=== PATIENT | male | born 1965 | race Caucasian/White ===

== ENCOUNTER 2020-04-05 10:00 | Observation (INO) | payer BC, SELFPAY ==
[2020-04-05] VITALS (18 sets, daily range): BP systolic 128–188; BP diastolic 69–107; PULSE 68–79; RESP 9–20; TEMP 36.6–37.1; O2SAT 95–99; BMI 40.6
--- NOTE | 2020-04-05 | ECHO_ITS ---
Patient Info Name: Husam Clements Age: 55 years : 1965 Gender: Male Ht: 72 in Wt: 293 lbs BSA: 2.65 m2 HR: 68 bpm BP: 128 / 69 mmHg Heart Rhythm: Sinus Rhythm Technical Quality: Good Exam Date: 04/05/2020 4:14 PM Exam Location: [facility] Pulmonary Patient Status: Inpatient Admit Date: 04/05/2020 Staff Ordering Physician: Catalino Cartagena MD Exhibit Carpenter: Titus Brownlee RDCS Attending Provider: Catalino Cartagena MD Exam Type: CA echo doppler color flow Study Info Indications R07.9 - Chest pain, unspecified Complete two-dimensional, color flow and Doppler transthoracic echocardiogram is performed. History/Risk Factors Chest pain; HTN, DM2, SOB, edema, murmur. Summary 1. There is mildly increased left ventricular wall thickness. 2. Left ventricular systolic function is normal, estimated at 60-65%. 3. The aortic valve is trileaflet. 4. There is mild aortic valve sclerosis. 5. There is no aortic valve stenosis. 6. There is no mitral valve regurgitation. 7. There is no tricuspid valve regurgitation. 8. There is no pericardial effusion. Left Ventricle Left ventricular systolic function is normal, estimated at 60-65%. There is mildly increased left ventricular wall thickness. The left ventricular diastolic function is grade I diastolic dysfunction. Left ventricular chamber dimension is normal. Left ventricular septal wall motion is normal. Right Ventricle Right ventricular chamber dimension is normal. Right ventricular systolic function is normal. Left Atria Left atrial chamber dimension is normal. Right Atria Right atrial chamber dimension is normal. Aortic Valve The aortic valve is trileaflet. There is mild aortic valve sclerosis. There is no aortic valve stenosis. There is no aortic valve regurgitation. Pulmonic Valve The pulmonic valve is normal. There is no pulmonic valve stenosis. There is no pulmonic regurgitation. Mitral Valve The mitral valve has normal leaflets. There is no mitral valve stenosis. There is no mitral valve regurgitation. Tricuspid Valve The tricuspid valve leaflets are normal. There is no significant tricuspid valve stenosis. There is no tricuspid valve regurgitation. Unable to assess pulmonary artery systolic pressure due to poor TR envelope. Pericardium/Pleural The pericardium appears normal. There is no pericardial effusion. Inferior Vena Cava Inferior vena cava is normal in size. Aorta The aortic root size at the sinus of Valsalva is normal. The prox ascending aorta size is normal. Left Ventricular Outflow Tract Name Value Normal LVOT 2D LVOT Diameter 2.0 cm LVOT Doppler LVOT Peak Gradient 3 mmHg LVOT Mean Gradient 2 mmHg LVOT VTI 15 cm LVOT VTI/AV VTI Ratio 0.7 LVOT Stroke Volume 47 ml LVOT CO 3.4 l/min LVOT CI 1.3 l/min/m2 Mitral Valve
--- NOTE | ~2020-04-05 | NM_ITS ---
EXAMINATION: NM stress w perf spect multi DATE: 04/06/2020 09:40 INDICATION: Chest pain. TECHNIQUE: Rest images were obtained following intravenous administration of 11.5 mCi Tc99m tetrofosm in (Myoview). The patient performed an exercise activity. At peak exercise, 33 mCi Tc99m tetrofosmin (Myoview) was administered intravenously, and stress images were obtained. Data was reconstructed int o short axis and horizontal and vertical long axis SPECT images. Gated SPECT images were also obtaine d. COMPARISON: Chest CT 04/05/2020 FINDINGS: There is a small, mild, fixed perfusion defect involving mid inferior and mid inferolateral segments of left ventricle, consistent with infarct. No reversible component to suggest ischemia. Th ere is no segmental wall motion abnormality. Left ventricular ejection fraction measures >70%. IMPRESSION: 1. Small area of mild infarct involving mid inferior and mid inferolateral segments of left ventricle . 2. Normal left ventricular ejection fraction measuring >70%. Reviewed, dictated and finalized at location E. IMPRESSION: 1. Small area of mild infarct involving mid inferior and mid inferolateral segm ents of left ventricle. 2. Normal left ventricular ejection fraction measuring >70%.
--- NOTE | ~2020-04-05 | CT_ITS ---
EXAMINATION: CTA chest PE protocol DATE: 04/05/2020 12:24 CDT INDICATION: Midsternal chest pain TECHNIQUE: Computed tomographic angiography (CTA) of the chest was performed with 100 mL Omnipaque-35 0 intravenous contrast. The dose-length product was 895.51 mGy-cm. Maximum intensity projection 3D-re constructions of the aorta and other arteries were constructed by the technologist on a separate work station. Automated exposure control and iterative reconstruction technique were employed. COMPARISON: None. FINDINGS: Study is technically adequate without evidence for pulmonary embolism. Evaluation of the pe ripheral pulmonary arteries in the lower lobes is limited by motion artifact. No evidence for aortic aneurysm or dissection. No significant pleural or pericardial effusion. No focal airspace consolidati on. No pneumothorax. No pulmonary nodules or masses. 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 IMPRESSION: 1. No acute cardiopulmonary disease. No evidence for pulmonary embolism. Reviewed, dictated and finalized at location A.
--- NOTE | ~2020-04-05 | XR_ITS ---
EXAMINATION: XR chest 2V 04/05/2020 10:16 INDICATION: Chest pain and shortness of breath PROCEDURE: 2 view chest COMPARISON: Comparison to multiple prior studies sequentially, with oldest reviewed study dated 10/2012. FINDINGS: The lungs are clear. The cardiomediastinal silhouette is within normal limits. There are no pleural effusions. There is no pneumothorax suspected. IMPRESSION: 1: NO ACUTE CARDIOPULMONARY DISEASE. Reviewed, dictated and finalized at location A.
--- NOTE | ~2020-04-05 | US_ITS ---
US abdomen limited INDICATION: Abdomen pain PROCEDURE: Realtime right upper abdominal ultrasound. COMPARISON: No prior studies for comparison. FINDINGS: The pancreas is normal without focal mass or pancreatic ductal dilation. Liver echotexture is increased, consistent with fatty infiltration. There is normal directional flow in the portal ve in. The gallbladder is normal without stones, gallbladder wall thickening or pericholecystic fluid. Comm on bile duct measures 4 mm. No sonographic Robert's sign. IMPRESSION: 1: Fatty infiltration of the liver. Reviewed, dictated and finalized at location A.
--- NOTE | 2020-04-05 10:03 | ECG_ITS ---
Measurements Intervals [place] Rate: 78 P: 44 NM: 158 QRS: 2 QRSD: 121 T: 57 QT: 393 QTc: 450 Interpretive Statements SINUS RHYTHM INTRAVENTRICULAR CONDUCTION DELAY DELAYED PRECORDIAL R/S TRANSITION BORDERLINE ECG Electronically Signed On 04-05-2020 11:09:14 CDT by Vincenzo Adams D.O.
--- NOTE | 2020-04-05 10:12 | ED.CHESTPAIN ---
HPI - Chest Pain General Chief Complaint: Chest Pain Stated Complaint: cp Time Seen by Provider: 04/05/20 10:03 Source: RN notes reviewed History of Present Illness HPI narrative: Patient presents emergency department from home for chest pain. States symptoms began approximately 1 hour ago. Pain is located the midsternal chest and radiates down into the right lower chest described as a pressure in nature. States associated shortness of breath. Denies any fevers or chills abdominal pain nausea vomiting or any other symptoms. Patient denies any previous cardiac history. States that he makes the pain better or worse Related Data Home Medications Medication Instructions Recorded Confirmed aspirin 81 mg tablet,delayed 81 mg PO DAILY 09/18/19 release cholecalciferol (vitamin D3) 25 1,000 unit PO DAILY 09/18/19 mcg (1,000 unit) capsule fluticasone propionate 50 2 spray NASAL DAILY 09/18/19 mcg/actuation nasal spray,suspension omega-3 fatty acids 1,000 mg 1,000 mg PO DAILY 09/18/19 capsule Allergies Allergy/AdvReac Type Severity Reaction Status Date / Time hydrochlorothiazide Allergy Unknown Unknown Verified 04/05/20 10:16 losartan Allergy Unknown headaches Verified 04/05/20 10:16 Review of Systems Review of Systems: Narrative: Gen.: Denies fevers or chills ENT: Denies congestion Respiratory: Denies shortness of breath or cough CV: Reports chest pain GI: Denies abdominal pain nausea, emesis or diarrhea Musculoskeletal: Denies back pain or muscle pain Neuro: Denies numbness, tingling, weakness or focal weakness Skin: Denies rash Except as documented, all other systems reviewed and negative FORMERLY [facility] Past Medical History Medical History (Updated 04/05/20 @ 12:55 by Hernandez Marquez DO) Carpal tunnel syndrome on both sides Essential (primary) hypertension Type 2 diabetes mellitus without complication, without long-term current use of insulin Surgical History Surgical History (Updated 09/19/19 @ 08:29 by Ochoa Ray MD) Status post arthroscopy of left knee Status post carpal tunnel release Social History Social History Smoking status: Never smoker Second hand tobacco smoke exposure: No Alcohol intake: current Drinks per week: 2 Substance use: never Substance use type: does not use Gender identity (if verbalized by the patient): Male Exam Narrative: Exam Narrative: APPEARANCE: No acute distress, nontoxic, resting in bed EYES: EOMI HEENT: Normocephalic, atraumatic, OMM RESPIRATORY: No respiratory distress Clear to auscultation bilaterally with no rhonchi wheezing or rales. CARDIOVASCULAR: Regular rate and rhythm without murmurs rubs or gallops. ABDOMINAL: Obese, soft, nondistended, tender palpation epigastric right upper quadrant, no tenderness left upper quadrant, right lower quadrant left lower quadrant, no rebound or guarding MUSCULOSKELETAl: Moves all extremities. No clubbing, cyanosis or edema. NEURO: Awake and alert. Following commands, speech normal, no focal deficits SKIN:: Warm, dry. No rashes lesions or abrasions PSYCHIATRIC: Normal affect/mood, Course Course Emergency Course: Patient states chest pain is resolved at this time Discussed with Dr Cartagena presentation work-up. Agrees with admission to the chest pain center at this time Discussed with patient and family results of workup and diagnosis. Discussed need for admission. Patient and family understand and agree to current treatment plan discussed with patient his current blood sugar he states he does not have a history of diabetes but is been told he is prediabetic. We discussed that he would need to follow-up with his primary care physician as an outpatient Vital Signs Vital signs: Vital Signs Temperature 97.8 F 04/05/20 10:04 Pulse Rate 79 04/05/20 10:04 Respiratory Rate 18 04/05/20 10:04 Blood Pressure 188/107 H 04/05/20 10:04 Pu
[2020-04-05 10:20] LABS: Basophils Absolute Auto 0.1 K/mm3 (0.0-0.1); Basophils Percent Auto 0.8 % (0.2-1.2); Eosinophils Absolute Auto 0.1 K/mm3 (0-0.3); Eosinophils Percent Auto 1.2 % (0-4.4); Hemoglobin 16.8 g/dL (14.0-18.0); Immature Granulocyte Absolute 0.07 K/mm3 (0.00-0.031); Immature Granulocyte Percent A 0.7 % (0-0.5); Lymphocytes Percent Auto 33.1 % (18.3-44.2); Mean Corpuscular HGB Conc 35.7 g/dl (32-36); Mean Corpuscular Hemoglobin 30.3 pg (26-34); Mean Corpuscular Volume 84.7 fl (80-100); Mean Platelet Volume 11.3 fl (7.4-10.4); Monocytes Absolute Auto 0.8 K/mm3 (0.1-0.6); Monocytes Percent Auto 8.2 % (2.6-8.5); Neutrophils Absolute Auto 5.6 K/mm3 (1.3-6.7); Platelet Count Result 249 k/mm3 (150-375); Red Blood Count 5.55 M/mm3 (4.6-6.20); Red Cell Distribution Width 12.7 % (11.5-14.5)
[2020-04-05 10:34] LABS: Prothrombin Time 12.4 Seconds (11.1-14.7)
[2020-04-05 10:35] LABS: Partial Thromboplastin Time 25.8 SECONDS (22.3-36.8)
[2020-04-05] MEDS: KETOROLAC 30 MG/ML VIAL (*BKC) IV PUSH (10:35)
[2020-04-05 11:50] LABS: Alanine Aminotransferase 47 U/L (4-50); Albumin Level 4.3 g/dL (3.5-5.1); Alkaline Phosphatase 208 U/L (38-126); Aspartate Amino Transferase 46 U/L (17-59); Bilirubin,Total 0.7 mg/dL (0.2-1.3); Lipase 52 U/L (23-300)
[2020-04-05 11:53] LABS: Blood Urea Nitrogen 17 mg/dL (9-20); Calcium 8.8 mg/dL (8.4-10.2); Carbon Dioxide 21 mmol/L (22-30); Chloride 100 mmol/L (98-107); Estimated CRCL calculation 115 ml/min; Estimated Glomerular Filt Rate > 60; Glucose 302 mg/dL (75-110); Potassium 4.5 mmol/L (3.4-5.0); Sodium 131 mmol/L (137-145)
[2020-04-05 12:07] LABS: Troponin I < 0.012 ng/mL (0.000-0.034)
[2020-04-05] MEDS: SODIUM CHLORIDE 0.9% IV 1,000 ML 999 ML IV CONT (12:59)
[2020-04-05] MEDS: ASPIRIN 81 MG CHEWABLE TABLET 324 MG PO (13:29)
--- NOTE | 2020-04-05 14:00 | ADMGEN ---
This patient, Husam Clements, was admitted to [facility] OBS[address] PER DR. DAVILA FROM ER AT 1400. DENIES CP OR SOB ON ARRIVAL. Patient/family oriented to hospital policies and general routines including ID bracelet, bed and alarms, visiting hours, pain management, procedures, bathroom and other care routines, personal items, smoking policy, room service/diet, and visiting hours. Valuables list has been completed. Information on how to activate the Rapid Response Team has been discussed. Patient/Family are encouraged to report perceived risks to care and to ask questions if they do not understand what they are told or what they should do.
--- NOTE | 2020-04-05 14:00 | ADMGEN ---
This patient, Husam Clements, was admitted to [facility]. Patient/family oriented to hospital policies and general routines including ID bracelet, bed and alarms, visiting hours, pain management, procedures, bathroom and other care routines, personal items, smoking policy, room service/diet, and visiting hours. Valuables list has been completed. Information on how to activate the Rapid Response Team has been discussed. Patient/Family are encouraged to report perceived risks to care and to ask questions if they do not understand what they are told or what they should do.
--- NOTE | 2020-04-05 15:15 | PC.NURSE ---
DR. DAVILA HERE TO SEE PT AT BEDSIDE. NOTIFIED OF HOME MED LIST AND LAB RESULTS.
[2020-04-05 15:17] LABS: Cholesterol 183 mg/dL (0-200)
[2020-04-05 15:21] LABS: Troponin I < 0.012 ng/mL (0.000-0.034)
[2020-04-05 15:43] LABS: LDL Cholesterol Direct < 30 mg/dL; Triglycerides 1534 mg/dL (<150)
--- NOTE | 2020-04-05 15:45 | PM.CNCAR ---
Assessment and Plan Assessment and plan (1) Chest pain: Code(s): R07.9 - Chest pain, unspecified Status: Acute Assessment and Plan: He has atypical chest pain, but has significant risk factors for coronary disease, so far cardiac enzymes are negative and EKG is unremarkable. Will continue to follow cardiac enzymes, if they continue to be negative then will proceed with stress test in the morning (2) Type 2 diabetes mellitus without complication, without long-term current use of insulin: Code(s): E11.9 - Type 2 diabetes mellitus without complications Status: Acute Assessment and Plan: Treatment per hospitalist (3) Fatty (change of) liver, not elsewhere classified: Code(s): K76.0 - Fatty (change of) liver, not elsewhere classified Status: Acute (4) Metabolic syndrome: Code(s): E88.81 - Metabolic syndrome Status: Acute (5) Mixed hyperlipidemia: Code(s): E78.2 - Mixed hyperlipidemia Status: Acute Assessment and Plan: Will check lipid profile and treat accordingly (6) CIARA (obstructive sleep apnea): Code(s): G47.33 - Obstructive sleep apnea (adult) (pediatric) Status: Acute Assessment and Plan: Currently is on CPAP at home Additional Plan Thank you for allowing me to participate in this patient's care, I will be following up with you. Please do not hesitate to call me for any other inquiry History of Present Illness History of Present Illness Consult date/time: 04/05/20 15:45 55 years old gentleman with history of diabetes mellitus, history of dyslipidemia, history of sleep apnea came to the hospital because of chest pain started this morning. He had sudden onset heaviness in the chest mostly left-sided with no radiation lasted for 5 minutes was severe subsequently started improving slightly item erectile emergency room he was pain free and he feels Fountains no history of known coronary disease nausea previous microinfarction no history of previous episode like that. He has mild shortness of breath mild dyspnea exertion, has mild to moderate leg swelling any history of known sleep apnea. Apparently has diabetes mellitus, but he is on no medications for that he is trying to do diet controlled diabetes management. So far cardiac enzymes are negative and EKG is unremarkable Reason For Visit: chest pain Review of Systems Constitutional: Constitutional: Reports fatigue and Reports lethargy Cardiovascular: Cardiovascular: Reports as per HPI Respiratory: Respiratory: Reports dyspnea on exertion PMFSH Past Medical History Medical History Carpal tunnel syndrome on both sides Essential (primary) hypertension Type 2 diabetes mellitus without complication, without long-term current use of insulin Surgical History Surgical History Status post arthroscopy of left knee Status post carpal tunnel release Family History Family History Father Hypertension Family history of coronary artery disease Social History Social History Smoking status: Never smoker Second hand tobacco smoke exposure: No Alcohol intake: current Drinks per week: 2 Substance use: never Substance use type: does not use Gender identity (if verbalized by the patient): Male Meds Home Medications and Allergies Home Medications Medication Instructions Recorded Confirmed Type aspirin 81 mg tablet,delayed 81 mg PO DAILY 09/18/19 04/05/20 History release cholecalciferol (vitamin D3) 25 1,000 unit PO DAILY 09/18/19 04/05/20 History mcg (1,000 unit) capsule fluticasone propionate 50 2 spray NASAL DAILY PRN 09/18/19 04/05/20 History mcg/actuation nasal spray,suspension omega-3 fatty acids 1,000 mg 1,000 mg PO DAILY
--- NOTE | 2020-04-05 15:45 | PC.NURSE ---
DR. JON, HOSPITALIST, HERE TO SEE PT FOR MEDICAL MANAGEMENT PER DR. DAVILA'S REQUEST. CONDITION UPDATE GIVEN.
--- NOTE | 2020-04-05 15:50 | ECG_ITS ---
Measurements Intervals [place] Rate: 71 P: 35 NM: 181 QRS: 3 QRSD: 105 T: 48 QT: 397 QTc: 431 Interpretive Statements SINUS RHYTHM BASELINE ARTIFACT- I, II, III, AVR, AVL, AVF, V1 NORMAL ECG Electronically Signed On 04-05-2020 18:59:09 CDT by Vincenzo Adams D.O.
--- NOTE | 2020-04-05 16:10 | PC.NURSE ---
ECHO IN PROGRESS AT BEDSIDE.
--- NOTE | 2020-04-05 16:23 | PM.IMHP ---
H&P: HPI History of Present Illness Chief complaint: chest pain Narrative: Date of visit 04/05 1630. Husam Clements is a 55 year old male with hypertension, obstructive sleep apnea, hyperlipidemia and diabetes who states that while sitting at the computer this a.m. working developed substernal pressure associated with shortness of breath and diaphoresis that radiated slightly toward right side of his chest. The pain was intermittent and after 45 minutes he decided to come to the emergency room for evaluation. By the time he got to the emergency room his pain had subsided and EKG and troponin were negative and he was admitted for treatment of the same. He does relate that he has gained several lbs during the [facility] in working at home and has been more sedentary. He also related that he occasionally kayaks and has noticed that his energy level has been down and sometimes his arms feel heavy but no chest pain. Risk factors for coronary disease include hypertension, hyperlipidemia, diabetes, and positive family history. Never been a smoker Review of Systems Review of Systems: Narrative: Constitutional he states that he has gained weight but not sure how much although the last 2-3 months. No fever no chills Eye no double vision scotoma Mouth no pharyngitis laryngitis Pulmonary no ongoing shortness breath wheezing or cough CV as per present illness no palpitation no real pedal edema GI no melena hematochezia diarrhea or constipation. Colonoscope 2017 with adenomatous polyp no dysuria no hematuria Muscle skeletal no particular joint discomfort Integument no skin breakdown rashes Neuropsych no seizures no syncope PMFSH Past Medical History Medical History (Updated 04/05/20 @ 16:44 by Niraj Calles MD) Carpal tunnel syndrome on both sides Essential (primary) hypertension Fractured tibia Mixed hyperlipidemia CIARA (obstructive sleep apnea) Type 2 diabetes mellitus without complication, without long-term current use of insulin Surgical History Surgical History (Updated 04/05/20 @ 16:44 by Niraj Calles MD) History of tonsillectomy Status post arthroscopy of left knee Status post carpal tunnel release Family History Family History (Updated 04/05/20 @ 16:46 by Niraj Calles MD) Father , age 72 , first CAD age 52 Hypertension Family history of coronary artery disease Diabetes mellitus Mother No problems noted. Social History Social History (Updated 04/05/20 @ 16:47 by Nirja Calles MD) Social History: Works for [employer] for the past 25 years Smoking status: Never smoker Second hand tobacco smoke exposure: No Alcohol intake: current Drinks per week: 2 Substance use: never Substance use type: does not use Gender identity (if verbalized by the patient): Male Meds Home Medications and Allergies Home Medications Medication Instructions Recorded Confirmed Type aspirin 81 mg tablet,delayed 81 mg PO DAILY 09/18/19 04/05/20 History release cholecalciferol (vitamin D3) 25 1,000 unit PO DAILY 09/18/19 04/05/20 History mcg (1,000 unit) capsule fluticasone propionate 50 2 spray NASAL DAILY PRN 09/18/19 04/05/20 History mcg/actuation nasal spray,suspension omega-3 fatty acids 1,000 mg 1,000 mg PO DAILY 09/18/19 04/05/20 History capsule aliskiren 300 mg tablet 300 mg PO DAILY #90 tablet 10/30/19 04/05/20 Rx diltiazem HCl 180 mg 360 mg PO DAILY #180 cap 01/16/20 04/05/20 Rx capsule,extended release 24 hr nebivolol 10 mg tablet 10 mg PO DAILY #90 tablet 01/16/20 04/05/20 Rx rosuvastatin 10 mg tablet 10 mg PO DAILY #90 tablet 03/10/20 04/05/20 Rx diphenhydramine HCl [Benadryl 25 mg PO TID PRN 04/05/20 04/05/20 History Allergy] Allergies Allergy/AdvReac Type Severity Reaction Status Date / Time hydrochlorothiazide Allergy Unknown Anaphylaxis Verified 04/05/20 15:46 losartan Allergy Unknown Anaphylaxis Verified 04/05/20 15:46
[2020-04-05] MEDS: INSULIN ASPART (*BKC) 100 UNITS/ML SUB-Q (18:21)
[2020-04-05 18:33] LABS: Troponin I < 0.012 ng/mL (0.000-0.034)
--- NOTE | 2020-04-05 18:50 | ECG_ITS ---
Measurements Intervals [place] Rate: 64 P: 28 NM: 178 QRS: -1 QRSD: 104 T: 36 QT: 427 QTc: 441 Interpretive Statements SINUS RHYTHM NORMAL ECG Electronically Signed On 04-05-2020 15:01:23 CDT by Vincenzo Adams D.O.
[2020-04-05] MEDS: ENOXAPARIN 40 MG/0.4 ML SYRINGE SUB-Q (20:39)
[2020-04-05] MEDS: FENOFIBRATE NANOCRYSTALLIZED 145 MG TABLET PO (20:39)
[2020-04-06] VITALS: PULSE 77
--- NOTE | 2020-04-06 | EST_ITS ---
Patient Info Name: Husam Clements Age: 55 years : 1965 Gender: Male Ht: 72 in Wt: 293 lbs BSA: 2.65 m2 Exam Date: 04/06/2020 8:33 AM Exam Location: [facility] Stress Patient Status: Inpatient Admit Date: 04/05/2020 Staff Ordering Physician: Catalino Cartagena MD Attending Provider: Catalino Cartagena MD Exercise Technologist: Roxanne Null RDCS Exam Type: CA stress test treadmill w NM Study Info Indications R07.9 - Chest pain, unspecified A pharmacological stress test was performed. Summary 1. Patient exercise on bimal protocol for 7 minutes achieving 10 METs. No chest pain. Patient stopped due to dyspnea. Heart rate was 81 at rest and increased to 146 at peak exercise which is 89% of max predicted heart rate. BP was 156/90 at rest and increased to 208/64 EKG shows normal sinus rhythm at rest. No ischemic EKG changes noted at peak exercise or recovery. 2. Summary: Stress EKG negative for ischemia. Hypertensive response to exercise. Nuclear images interpretation will be reported separately. Protocol: Manual Mode Stress ECG Details Stage: REST Duration (min): 0 min : 50 sec Boyle: --- Speed (mph): 0.0 Grade (%): 0 HR (bpm): 84 SBP (mmHg): 156 DBP (mmHg): 90 METS: --- Stage: REST Duration (min): 13 min : 18 sec Boyle: --- Speed (mph): 0.0 Grade (%): 0 HR (bpm): 99 SBP (mmHg): 156 DBP (mmHg): 90 METS: --- Stage: STAGE 1 Duration (min): 1 min : 0 sec Boyle: --- Speed (mph): 1.7 Grade (%): 10 HR (bpm): 102 SBP (mmHg): 156 DBP (mmHg): 90 METS: --- Stage: STAGE 1 Duration (min): 2 min : 0 sec Boyle: --- Speed (mph): 1.7 Grade (%): 10 HR (bpm): 108 SBP (mmHg): 156 DBP (mmHg): 90 METS: --- Stage: STAGE 1 Duration (min): 3 min : 0 sec Boyle: --- Speed (mph): 1.7 Grade (%): 10 HR (bpm): 113 SBP (mmHg): 201 DBP (mmHg): 80 METS: --- Stage: STAGE 2 Duration (min): 1 min : 0 sec Boyle: --- Speed (mph): 2.5 Grade (%): 12 HR (bpm): 118 SBP (mmHg): 201 DBP (mmHg): 80 METS: --- Stage: STAGE 2 Duration (min): 2 min : 0 sec Boyle: --- Speed (mph): 2.5 Grade (%): 12 HR (bpm): 124 SBP (mmHg): 208 DBP (mmHg): 64 METS: --- Stage: STAGE 2 Duration (min): 3 min : 0 sec Boyle: --- Speed (mph): 2.5 Grade (%): 12 HR (bpm): 129 SBP (mmHg): 208 DBP (mmHg): 64 METS: --- Stage: STAGE 3 Duration (min): 1 min : 0 sec Boyle: --- Speed (mph): 3.4 Grade (%): 14 HR (bpm): 141 SBP (mmHg): 187 DBP (mmHg): 100 METS: --- Stage: STAGE 3 Duration (min): 2 min : 0 sec Boyle: --- Speed (mph): 2.5 Grade (%): 0 HR (bpm): 146 SBP (mmHg): 187 DBP (mmHg): 100 METS: --- Stage: STAGE 3 Duration (min): 2 min : 2 sec Boyle: --- Speed (mph): 2.5 Grade (%): 0 HR (bpm): 146 SBP (mmHg): 187 DBP (mmHg): 100 METS: ---
[2020-04-06 03:52] VITALS: BP 146/95; PULSE 83; RESP 18; O2SAT 98
[2020-04-06 04:00] VITALS: PULSE 84
--- NOTE | 2020-04-06 08:05 | PM.CNCAR ---
History of Present Illness History of Present Illness Consult date/time: 04/06/20 08:05 55 y/o male with h/o HTN, HLD, diet controlled DM who presented with chest pain. Pain developed suddenly while patient was working on his computer. If felt like pressure in the middle of the chest with no radiation. It was associated with SOB and diaphoresis. No nausea/vomiting. He has been feeling fatigued lately. He put on at least 15 pounds over the last 2 months that he contributes to staying at home due to the pandemic. He felt better by the time he got to ER and he remains pain free since. He has no personal history of heart disease but very strong family history of heart disease including father and grandfather who both had MIs in their early 50s. His brother had valve replacement Trop has been negative X3. EKG showed: Never smoker. Reason For Visit: chest pain PMFSH Past Medical History Medical History (Updated 04/05/20 @ 16:44 by Niraj Calles MD) Carpal tunnel syndrome on both sides Essential (primary) hypertension Fractured tibia Mixed hyperlipidemia CIARA (obstructive sleep apnea) Type 2 diabetes mellitus without complication, without long-term current use of insulin Surgical History Surgical History (Updated 04/05/20 @ 16:44 by Niraj Calles MD) History of tonsillectomy Status post arthroscopy of left knee Status post carpal tunnel release Family History Family History (Updated 04/05/20 @ 16:46 by Niraj Calles MD) Father , age 72 , first CAD age 52 Hypertension Family history of coronary artery disease Diabetes mellitus Mother No problems noted. Social History Social History (Updated 04/05/20 @ 16:47 by Niraj Calles MD) Social History: Works for [employer] for the past 25 years Smoking status: Never smoker Second hand tobacco smoke exposure: No Alcohol intake: current Drinks per week: 2 Substance use: never Substance use type: does not use Gender identity (if verbalized by the patient): Male Meds Home Medications and Allergies Home Medications Medication Instructions Recorded Confirmed Type aspirin 81 mg tablet,delayed 81 mg PO DAILY 09/18/19 04/05/20 History release cholecalciferol (vitamin D3) 25 1,000 unit PO DAILY 09/18/19 04/05/20 History mcg (1,000 unit) capsule fluticasone propionate 50 2 spray NASAL DAILY PRN 09/18/19 04/05/20 History mcg/actuation nasal spray,suspension omega-3 fatty acids 1,000 mg 1,000 mg PO DAILY 09/18/19 04/05/20 History capsule aliskiren 300 mg tablet 300 mg PO DAILY #90 tablet 10/30/19 04/05/20 Rx diltiazem HCl 180 mg 360 mg PO DAILY #180 cap 01/16/20 04/05/20 Rx capsule,extended release 24 hr nebivolol 10 mg tablet 10 mg PO DAILY #90 tablet 01/16/20 04/05/20 Rx rosuvastatin 10 mg tablet 10 mg PO DAILY #90 tablet 03/10/20 04/05/20 Rx diphenhydramine HCl [Benadryl 25 mg PO TID PRN 04/05/20 04/05/20 History Allergy] Allergies Allergy/AdvReac Type Severity Reaction Status Date / Time hydrochlorothiazide Allergy Unknown Anaphylaxis Verified 04/05/20 15:46 losartan Allergy Unknown Anaphylaxis Verified 04/05/20 15:46 amlodipine [From Lotrel] Allergy Headache Verified 04/05/20 15:32 benazepril [From Lotrel] Allergy Headache Verified 04/05/20 15:32 Vital Signs Vital Signs - 24 hr 04/05/20 10:04 04/05/20 11:00 04/05/20 11:33 Temperature 36.6 C Pulse Rate 79 71 73 Respiratory Rate 18 9 L 19 Blood Pressure 188/107 H 154/81 H Pulse Oximetry 98 98 97 04/05/20 11:46 04/05/20 12:01 04/05/20 12:21 Temperature Pulse Rate 78 71 72 Respiratory Rate 19 13 16 Blood Pressure 146/84 H 157/82 H 156/79 H Pulse Oximetry 97 98 98 04/05/20 12:31 04/05/20 12:46 04/05/20 13:01 Temperature Pulse Rate 71 73 69 Respiratory Rate 13 12 19 Blood Pressure 148/80 H 155/88 H 135/73 Pulse Oximetry 98 98 98 04/05/20 13:15 04/05/20 13:16
--- NOTE | 2020-04-06 08:13 | PM.PNCARD ---
Progress Note: A&P Assessment and Plan (1) Chest pain: Code(s): R07.9 - Chest pain, unspecified Status: Acute Assessment and Plan: He has atypical chest pain, but has significant risk factors for coronary disease, so far cardiac enzymes are negative and EKG is unremarkable. Will proceed with exercise Nuc stress test (2) Type 2 diabetes mellitus without complication, without long-term current use of insulin: Code(s): E11.9 - Type 2 diabetes mellitus without complications Status: Acute Assessment and Plan: Treatment per hospitalist (3) Fatty (change of) liver, not elsewhere classified: Code(s): K76.0 - Fatty (change of) liver, not elsewhere classified Status: Acute (4) Metabolic syndrome: Code(s): E88.81 - Metabolic syndrome Status: Acute (5) Mixed hyperlipidemia: Code(s): E78.2 - Mixed hyperlipidemia Status: Acute Assessment and Plan: He has severe Severe hypertriglyceridemia 1500 Need lifestyle modifications and dietary restrictions. Would also start fenofibrate (6) CIARA (obstructive sleep apnea): Code(s): G47.33 - Obstructive sleep apnea (adult) (pediatric) Status: Acute Assessment and Plan: Currently is on CPAP at home Subjective Date/time seen: 04/06/20 08:13 Feels better with no recurrence of chest pain since yesterday Review of Systems Constitutional: Constitutional: Reports fatigue and Reports lethargy Cardiovascular: Cardiovascular: Reports as per HPI and Reports dyspnea on exertion Respiratory: Respiratory: Reports dyspnea on exertion Endocrine: Endocrine: Reports fatigue Exam Const: General: no acute distress Eyes: Sclera: sclerae normal Neck: Neck: no JVD Carotids: no bruits Resp: Effort & Inspection: normal respiratory effort Auscultation: clear to auscultation bilaterally Cardio: Rate: regular rate and not tachycardic Rhythm: regular rhythm Heart sounds: no gallops, no murmurs and no rubs GI: GI Palp: Yes Soft to palpation and No Tenderness to palpation present (GI) Skin: General skin exam: normal color Neuro: Cranial nerves: Yes Normal hearing present Speech: normal speech Extrem: General: normal to inspection and no edema Psych: Affect: normal affect Objective Data Vital Signs Vital Signs: Vital Signs - 24 hr 04/05/20 10:04 04/05/20 11:00 04/05/20 11:33 Temperature 36.6 C Pulse Rate 79 71 73 Respiratory Rate 18 9 L 19 Blood Pressure 188/107 H 154/81 H Pulse Oximetry 98 98 97 04/05/20 11:46 04/05/20 12:01 04/05/20 12:21 Temperature Pulse Rate 78 71 72 Respiratory Rate 19 13 16 Blood Pressure 146/84 H 157/82 H 156/79 H Pulse Oximetry 97 98 98 04/05/20 12:31 04/05/20 12:46 04/05/20 13:01 Temperature Pulse Rate 71 73 69 Respiratory Rate 13 12 19 Blood Pressure 148/80 H 155/88 H 135/73 Pulse Oximetry 98 98 98 04/05/20 13:15 04/05/20 13:16 04/05/20 14:00 Temperature 37.1 C Pulse Rate 68 68 76 Respiratory Rate 15 14 Blood Pressure 128/69 148/89 H Pulse Oximetry 98 99 04/05/20 14:15 04/05/20 16:00 04/05/20 18:00 Temperature 36.9 C Pulse Rate 70 78 76 Respiratory Rate 16 Blood Pressure 159/92 H Pulse Oximetry 98 04/05/20 20:00 04/05/20 20:47 04/05/20 23:54 Temperature 37.0 C 36.9 C Pulse Rate 78 78 Respiratory Rate 20 19 Blood Pressure 157/81 H 176/90 H Pulse Oximetry 95 97 98 04/06/20 00:00 04/06/20 03:52 04/06/20 04:00 Temperature Pulse Rate 77 83 84 Respiratory Rate 18 Blood Pressure 146/95 H Pulse Oximetry 98 Intake/Output Intake/Output: Intake & Output 04/03/20 04/04/20 04/05/20 04/06/20 23:59 23:59 23:59 23:59 Intake Total 240 240 Balance 240 240 Meds/Results Medications: Active Medications Generic Name Dose Route Start Last Admin Trade Name Freq PRN Reason Stop Dose Admin Acetaminophen 650 mg 04/05/20 16:42 Tylenol Tablet PO Q6H PRN Mild
[2020-04-06 09:58] VITALS: BP 160/103; PULSE 95; RESP 21; O2SAT 98
[2020-04-06 10:20] VITALS: PULSE 95
[2020-04-06] MEDS: NEBIVOLOL HCL 5 MG TABLET 10 MG PO (10:20)
[2020-04-06] MEDS: OMEGA 3 POLYUNSAT FATTY ACIDS 1 GM CAP PO (10:20)
[2020-04-06] MEDS: ROSUVASTATIN 10 MG TABLET PO (10:20)
[2020-04-06] MEDS: ALISKIREN 150 MG TABLET 300 MG PO (10:20)
[2020-04-06] MEDS: FENOFIBRATE NANOCRYSTALLIZED 145 MG TABLET PO (10:21)
[2020-04-06] MEDS: CHOLECALCIFEROL 1,000 UNIT TABLET 1000 UNITS PO (10:22)
--- NOTE | 2020-04-06 11:49 | PM.IMPN ---
Progress Note: A&P Assessment and Plan (1) Chest pain: Qualifiers: Chest pain type: unspecified Qualified Code(s): R07.9 - Chest pain, unspecified Code(s): R07.9 - Chest pain, unspecified Status: Acute Assessment and Plan: His pain has resolved , he had a stress test that showed a small fixed perfusion defect over the infrolateral segment of the left ventricle . The exercise portion of the test came back normal. Seen by cardiology, no further intervention at this time. (2) Type 2 diabetes mellitus without complication, without long-term current use of insulin: Code(s): E11.9 - Type 2 diabetes mellitus without complications Status: Chronic Assessment and Plan: Hb A1c is pending , he states that he controls his DM with diet and exercise. He was advised to follow up with his PCP on the results of the A1c. No need to hold the discharge. (3) Mixed hyperlipidemia: Code(s): E78.2 - Mixed hyperlipidemia Status: Chronic Assessment and Plan: Triglycerides elevated, he was counseled about diet and alcohol restrictions. Fenofibrate was added by cardiology. (4) Essential (primary) hypertension: Code(s): I10 - Essential (primary) hypertension Status: Chronic Assessment and Plan: Cont home meds. (5) Metabolic syndrome: Code(s): E88.81 - Metabolic syndrome Status: Chronic Additional Plan Ok to go home per medicine, needs close follow up on his DM since we don't have the results of his A1c. Time Spent With Patient Time with patient: 15 - 25 minutes Subjective Date/time seen: 04/06/20 11:49 No new complains , his chest pain has resolved. Review of Systems Review of Systems: Narrative: No new complains, denies chest pain or SOB. Exam Const: General: no acute distress Eyes: General: appearance normal, both eyes and all related structures Neck: Neck: supple and no JVD Resp: Effort & Inspection: normal respiratory effort Auscultation: clear to auscultation bilaterally Cardio: Rate: regular rate Rhythm: regular rhythm Other: No bradycardia or tachycardia GI: Inspection: normal to inspection Auscultation: normal bowel sounds Skin: General skin exam: normal color and no rashes or lesions noted Neuro: Cognition (Neuro): normal cognition Speech: normal speech Motor exam (neuro): 5/5 motor strength present throughout Extrem: General: normal to inspection Psych: Mental Status: mental status grossly normal Affect: normal affect Objective Data Vital Signs Vital Signs: Vital Signs - 24 hr 04/05/20 12:01 04/05/20 12:21 04/05/20 12:31 Temperature Pulse Rate 71 72 71 Respiratory Rate 13 16 13 Blood Pressure 157/82 H 156/79 H 148/80 H Pulse Oximetry 98 98 98 04/05/20 12:46 04/05/20 13:01 04/05/20 13:15 Temperature Pulse Rate 73 69 68 Respiratory Rate 12 19 Blood Pressure 155/88 H 135/73 Pulse Oximetry 98 98 04/05/20 13:16 04/05/20 14:00 04/05/20 14:15 Temperature 98.8 F Pulse Rate 68 76 70 Respiratory Rate 15 14 Blood Pressure 128/69 148/89 H Pulse Oximetry 98 99 04/05/20 16:00 04/05/20 18:00 04/05/20 20:00 Temperature 98.5 F 98.6 F Pulse Rate 78 76 78 Respiratory Rate 16 20 Blood Pressure 159/92 H 157/81 H Pulse Oximetry 98 95 04/05/20 20:47 04/05/20 23:54 04/06/20 00:00 Temperature 98.4 F Pulse Rate 78 77 Respiratory Rate 19 Blood Pressure 176/90 H Pulse Oximetry 97 98 04/06/20 03:52 04/06/20 04:00 04/06/20 09:58 Temperature Pulse Rate 83 84 95 Respiratory Rate 18 21 H Blood Pressure 146/95 H 160/103 H Pulse Oximetry 98 98 04/06/20 10:20 Temperature Pulse Rate 95 Respiratory Rate Blood Pressure Pulse Oximetry Intake/Output Intake/Output: Intake & Output 04/03/20 04/04/20 04/05/20 04/06/20 23:59 23:59 23:59 23:59 Intake Total 240 240 Balance 240 240 Meds/Results Medications: Ac
--- NOTE | 2020-04-06 19:19 | PM.DS ---
DS: Admitting Diagnosis Admitting Diagnosis Admitting Diagnosis: Chest pain, unspecified DS: Discharge Diagnosis Discharge Diagnosis (1) Chest pain: Qualifiers: Chest pain type: unspecified Qualified Code(s): R07.9 - Chest pain, unspecified Code(s): R07.9 - Chest pain, unspecified Status: Acute Assessment and Plan: He has atypical chest pain, but has significant risk factors for coronary disease, so far cardiac enzymes are negative and EKG is unremarkable. Will proceed with exercise Nuc stress test (2) Type 2 diabetes mellitus without complication, without long-term current use of insulin: Code(s): E11.9 - Type 2 diabetes mellitus without complications Status: Chronic Assessment and Plan: Treatment per hospitalist (3) Fatty (change of) liver, not elsewhere classified: Code(s): K76.0 - Fatty (change of) liver, not elsewhere classified Status: Acute (4) Metabolic syndrome: Code(s): E88.81 - Metabolic syndrome Status: Chronic (5) Mixed hyperlipidemia: Code(s): E78.2 - Mixed hyperlipidemia Status: Chronic Assessment and Plan: He has severe Severe hypertriglyceridemia 1500 Need lifestyle modifications and dietary restrictions. Would also start fenofibrate (6) CIARA (obstructive sleep apnea): Code(s): G47.33 - Obstructive sleep apnea (adult) (pediatric) Status: Acute Assessment and Plan: Currently is on CPAP at home DS: Summary Time Spent with Patient Time attestation: Total time spent providing and/or coordinating discharge services: Exam Const: General: no acute distress Eyes: Sclera: sclerae normal Neck: Neck: no JVD Carotids: no bruits Resp: Effort & Inspection: normal respiratory effort Auscultation: clear to auscultation bilaterally Cardio: Rate: regular rate and not tachycardic Rhythm: regular rhythm Heart sounds: no gallops, no murmurs and no rubs Skin: General skin exam: normal color Neuro: Cranial nerves: Yes Normal hearing present Speech: normal speech Extrem: General: normal to inspection and no edema Psych: Affect: normal affect Discharge Plan Discharge Attending physician on discharge: Isabella Fox Consulting providers: Niraj Calles ; Everett Arguello Discharging Clinician: Isabella Fox Patient Disposition: Home, Self-Care Activity: as tolerated Diet: diabetic Discharge Instructions: Follow Up with Primary Doctor to follow blood glucose/ Hemoglobin A1C per Dr. Ward Stand Alone Forms: General Discharge Information Follow-up/Referrals: Ochoa Ray MD [Primary Care Provider] - Discharge Medications: New fenofibrate nanocrystallized 145 mg Tablet 145 mg PO QAM Qty: 30 RF: 0 Continued fluticasone propionate 50 mcg/actuation spray,suspension 2 spray NASAL DAILY PRN (Reason: Allergy Symptoms) RF: 0 aspirin 81 mg tablet,delayed release (DR/EC) 81 mg PO DAILY RF: 0 omega-3 fatty acids [Fish Oil Concentrate] 1,000 mg capsule 1,000 mg PO DAILY RF: 0 cholecalciferol (vitamin D3) 1,000 unit capsule 1,000 unit PO DAILY RF: 0 diphenhydramine HCl [Benadryl Allergy] 25 mg Tablet 25 mg PO TID PRN (Reason: Allergy Symptoms) RF: 0 aliskiren [Tekturna] 300 mg tablet 300 mg PO DAILY Qty: 90 RF: 2 diltiazem HCl 180 mg capsule,extended release 24hr 360 mg PO DAILY Qty: 180 RF: 1 Bystolic 10 mg tablet 10 mg PO DAILY Qty: 90 RF: 1 rosuvastatin [Crestor] 10 mg tablet 10 mg PO DAILY Qty: 90 RF: 1 Date of admission: 04/05/20 12:50 Primary Care Provider: Ochoa Ray Admitting Provider: Catalino Cartagena Discharge Date/Time: 04/06/20 13:10 Attending physician on admission: Catalino Cartagena Condition: Stable
[2020-04-13 11:11] LABS: Glucose Point of Care 234 (65-105)
[2020-04-13 11:13] LABS: Glucose Point of Care 210 (65-105)
[2020-04-13 11:15] LABS: Glucose Point of Care 227 (65-105)
== END 2020-04-06 13:10 | disposition home or self-care (01) ==
LOC: ANHED 12:56 → ANHCPC 15:52
PROVIDERS: Admitting Provider Specialist; Emergency Provider Emergency Medicine; PCP Family Medicine; Visit Provider Internal Medicine
DX: R07.89 Other chest pain (principal); I10 Essential (primary) hypertension; E11.9 Type 2 diabetes mellitus without complications; K76.0 Fatty (change of) liver, not elsewhere classified; E88.81 Metabolic syndrome and other insulin resistance; E78.2 Mixed hyperlipidemia; G47.33 Obstructive sleep apnea (adult) (pediatric)
CPT/HCPCS: 36415; 71046; 71275; 76705; 78452; 80048; 80061; 80076; 83690; 84484; 85025; 85610; 85730; 93005; 93017; 93306; 96372; 96374; 99285; A9270; A9502; G0378; J1650; J1815; J1885; J7030; Q9967

== ENCOUNTER 2020-04-14 00:14 | Outpatient (CLI) | payer BC, SELFPAY ==
[2020-04-14 18:11] LABS: SARS-CoV-2 RNA PCR Negative
== END 2020-04-14 00:15 | disposition home or self-care (01) ==
LOC: ANHCOVIDDT 00:14
PROVIDERS: PCP Family Medicine; Visit Provider Internal Medicine Gastroenterology
DX: Z20.828 Contact with and (suspected) exposure to other viral communicable diseases (principal); Z01.812 Encounter for preprocedural laboratory examination
CPT/HCPCS: 87635; C9803; U0003

== ENCOUNTER 2020-04-16 03:31 | Day surgery (SDC) | payer BC, SELFPAY ==
[2020-04-13 14:57] VITALS: BMI 40.4
[2020-04-16 06:39] VITALS: BP 137/72; PULSE 74; RESP 18; TEMP 36.8; O2SAT 98; BMI 39.1
[2020-04-16] MEDS: LACTATED RINGERS 1,000 ML 150 ML IV CONT (06:48)
--- NOTE | 2020-04-16 07:02 | WPDANESEPPF ---
Anes - Initial Pre Proc Eval Procedure: Operation Date: 04/16/20 08:00 Proposed Procedures p Screening Colonoscopy - Andrew Grimm MD Date/Time: 04/16/20 07:02 Surgeon: Andrew Grimm MD Pre Op Diagnosis: neoplasm screening, family hx of polyps Patient Data Age: 55 Gender: M Height: 1.83 m Weight: 130.8 kg Last Vital Signs Temp 36.8 C 04/16/20 06:39 Pulse 74 04/16/20 06:39 Resp 18 04/16/20 06:39 BP 137/72 04/16/20 06:39 Pulse Ox 98 04/16/20 06:39 Allergies Allergy/AdvReac Type Severity Reaction Status Date / Time hydrochlorothiazide Allergy Severe Anaphylaxis Verified 04/16/20 06:37 losartan Allergy Severe Anaphylaxis Verified 04/16/20 06:37 amlodipine [From Lotrel] Allergy Headache Verified 04/16/20 06:37 benazepril [From Lotrel] Allergy Headache Verified 04/16/20 06:37 Home Medications Medication Instructions Recorded Confirmed Type aspirin 81 mg tablet,delayed 81 mg PO DAILY 09/18/19 04/13/20 History release cholecalciferol (vitamin D3) 25 1,000 unit PO DAILY 09/18/19 04/13/20 History mcg (1,000 unit) capsule fluticasone propionate 50 2 spray NASAL DAILY PRN 09/18/19 04/13/20 History mcg/actuation nasal spray,suspension omega-3 fatty acids 1,000 mg 1,000 mg PO DAILY 09/18/19 04/13/20 History capsule aliskiren 300 mg tablet 300 mg PO DAILY #90 tablet 10/30/19 04/13/20 Rx diltiazem HCl 180 mg 360 mg PO DAILY #180 cap 01/16/20 04/13/20 Rx capsule,extended release 24 hr nebivolol 10 mg tablet 10 mg PO DAILY #90 tablet 01/16/20 04/13/20 Rx diphenhydramine HCl [Benadryl 25 mg PO TID PRN 04/05/20 04/13/20 History Allergy] fenofibrate nanocrystallized 145 mg PO QAM #30 tablet 04/06/20 04/13/20 Rx rosuvastatin 10 mg PO DAILY 06/16/20 06/16/20 History Patient hx anesthesia problems: none Family hx anesthesia problems: none PMFSH Past Medical History Medical History (Updated 04/06/20 @ 12:01 by Everett Felix MD) Carpal tunnel syndrome on both sides Essential (primary) hypertension Fractured tibia Mixed hyperlipidemia CIARA (obstructive sleep apnea) Type 2 diabetes mellitus without complication, without long-term current use of insulin Surgical History Surgical History (Updated 04/05/20 @ 16:44 by Niraj Calles MD) History of tonsillectomy Status post arthroscopy of left knee Status post carpal tunnel release Family History Family History (Updated 04/05/20 @ 16:46 by Niraj Calles MD) Father , age 72 , first CAD age 52 Hypertension Family history of coronary artery disease Diabetes mellitus Mother No problems noted. Social History Social History (Updated 04/05/20 @ 16:47 by Niraj Calles MD) Social History: Works for [employer] for the past 25 years Smoking status: Never smoker Second hand tobacco smoke exposure: No Alcohol intake: current Drinks per week: 2 Substance use: never Substance use type: does not use Gender identity (if verbalized by the patient): Male Anes - Eval Final PreProcedure Day of Procedure 04/16/20 07:02 Patient weight: obese Heart: regular rate and rhythm Lungs: clear to auscultation and normal air movement Airway: Mallampati scale class III Neurological: alert and oriented Last oral intake: >/= 8 hours ASA classification: III Emergent: no Anesthetic plan: proceed Anesthesia type and monitoring: general GIVS and standard monitoring Informed Consent: The patient's anesthetic plan and its attendant risks and benefits were discussed with the patient/family/POA. Questions were solicited and answers provided to the satisfaction of the patient/family/POA.
--- NOTE | 2020-04-16 07:56 | PM.HPGS ---
History of Present Illness History of Present Illness Consent: Risks, benefits, and alternatives have been discussed and questions answered. Patient agrees to proceed with procedure. Chief complaint: neoplasm screening, family hx of polyps Narrative: Husam Clements is a 55 year old male For screening colonoscopy. He has a history of an incompletely removed PMFSH Past Medical History Medical History Carpal tunnel syndrome on both sides Essential (primary) hypertension Fractured tibia Mixed hyperlipidemia CIARA (obstructive sleep apnea) Type 2 diabetes mellitus without complication, without long-term current use of insulin Surgical History Surgical History History of tonsillectomy Status post arthroscopy of left knee Status post carpal tunnel release Family History Family History Father , age 72 , first CAD age 52 Hypertension Family history of coronary artery disease Diabetes mellitus Mother No problems noted. Social History Social History Social History: Works for [employer] for the past 25 years Smoking status: Never smoker Second hand tobacco smoke exposure: No Alcohol intake: current Drinks per week: 2 Substance use: never Substance use type: does not use Gender identity (if verbalized by the patient): Male Meds Home Medications and Allergies Home Medications Medication Instructions Recorded Confirmed Type aspirin 81 mg tablet,delayed 81 mg PO DAILY 09/18/19 04/13/20 History release cholecalciferol (vitamin D3) 25 1,000 unit PO DAILY 09/18/19 04/13/20 History mcg (1,000 unit) capsule fluticasone propionate 50 2 spray NASAL DAILY PRN 09/18/19 04/13/20 History mcg/actuation nasal spray,suspension omega-3 fatty acids 1,000 mg 1,000 mg PO DAILY 09/18/19 04/13/20 History capsule aliskiren 300 mg tablet 300 mg PO DAILY #90 tablet 10/30/19 04/13/20 Rx diltiazem HCl 180 mg 360 mg PO DAILY #180 cap 01/16/20 04/13/20 Rx capsule,extended release 24 hr nebivolol 10 mg tablet 10 mg PO DAILY #90 tablet 01/16/20 04/13/20 Rx diphenhydramine HCl [Benadryl 25 mg PO TID PRN 04/05/20 04/13/20 History Allergy] fenofibrate nanocrystallized 145 mg PO QAM #30 tablet 04/06/20 04/13/20 Rx rosuvastatin 10 mg PO DAILY 04/13/20 04/13/20 History Allergies Allergy/AdvReac Type Severity Reaction Status Date / Time hydrochlorothiazide Allergy Severe Anaphylaxis Verified 04/16/20 06:37 losartan Allergy Severe Anaphylaxis Verified 04/16/20 06:37 amlodipine [From Lotrel] Allergy Headache Verified 04/16/20 06:37 benazepril [From Lotrel] Allergy Headache Verified 04/16/20 06:37 Vital Signs Vital Signs - 24 hr 04/16/20 06:39 Temperature 36.8 C Pulse Rate 74 Respiratory Rate 18 Blood Pressure 137/72 Pulse Oximetry 98 Exam Resp: Auscultation: clear to auscultation bilaterally Cardio: Rate: regular rate Rhythm: regular rhythm GI: GI Palp: Yes Soft to palpation and No Tenderness to palpation present (GI) Assessment and Plan Assessment and plan (1) Personal history of colonic polyps: Code(s): Z86.010 - Personal history of colonic polyps Status: Acute Assessment and Plan: Colonoscopy with possible biopsy or polypectomy or cautery or injection of substances.
[2020-04-16 08:34] VITALS: BP 111/72; PULSE 63; RESP 20; O2SAT 95
[2020-04-16 08:44] VITALS: BP 121/81; PULSE 60; RESP 23; O2SAT 97
[2020-04-16 08:54] VITALS: BP 118/78; PULSE 59; RESP 16; O2SAT 97
== END 2020-04-16 09:08 | disposition home or self-care (01) ==
PROVIDERS: PCP Family Medicine; Visit Provider Internal Medicine Gastroenterology
PROC: 0DJD8ZZ Inspection of Lower Intestinal Tract, Via Natural or Artificial Opening Endoscopic (ICD-10-PCS; CPT 45378; principal; 2020-04-16 08:00)
DX: Z12.11 Encounter for screening for malignant neoplasm of colon (principal); D12.2 Benign neoplasm of ascending colon; I10 Essential (primary) hypertension; E78.2 Mixed hyperlipidemia; E11.9 Type 2 diabetes mellitus without complications; G47.33 Obstructive sleep apnea (adult) (pediatric); Z79.82 Long term (current) use of aspirin; E66.9 Obesity, unspecified; Z68.39 Body mass index [BMI] 39.0-39.9, adult
CPT/HCPCS: 45385; 88305; J2704; J7120

== ENCOUNTER → 2021-05-03 11:05 | Outpatient (CLI) | payer BC, SELFPAY ==
--- NOTE | ~2021-05-03 | XR_ITS ---
XR chest 2V DATE: 05/03/2021 12:14 INDICATION: Chest pain TECHNIQUE: 2 views COMPARISON: 04/05/2020 CT pulmonary scan 04/05/2020 2 view chest FINDINGS: Normal heart size. No hilar or mediastinal enlargement. No pulmonary infiltrate or consolid ation, pleural effusion or pulmonary vascular congestion or pneumothorax. Diffuse idiopathic skeletal hyperostosis of the thoracic spine. IMPRESSION: No active cardiopulmonary disease Reviewed, dictated and finalized at location A.
== END ==
PROVIDERS: Visit Provider Family Medicine
DX: R07.9 Chest pain, unspecified (principal)
CPT/HCPCS: 71046

== ENCOUNTER 2023-10-10 00:38 | Day surgery (SDC) | payer BC, SELFPAY ==
[2023-09-25 15:22] VITALS: BMI 38.2
--- NOTE | 2023-10-08 09:26 | SUR.PREOP ---
Patient called regarding upcoming procedure. Reviewed preop instructions, appointment times, and procedure prep.
--- NOTE | 2023-10-09 14:40 | PM.HPGS ---
History of Present Illness History of Present Illness Consent: Risks, benefits, and alternatives have been discussed and questions answered. Patient agrees to proceed with procedure. Chief complaint: hx colon polyps Narrative: Husam Clements is a 58 year old male here for colonoscopy due to history of polyps. Six years ago he was found have a 2 cm diameter broad-based polyp which was removed piecemeal and also treated with argon plasma coagulation. Three years ago on colonoscopy I noted recurrence at the same area which was again treated with polypectomy snare and ablation. Review of Systems Review of Systems: All systems reviewed & are unremarkable except as noted in HPI and below PMFSH Past Medical History Medical History Carpal tunnel syndrome on both sides Diabetes mellitus type 2, uncontrolled Essential (primary) hypertension Fractured tibia Mixed hyperlipidemia Obesity CIARA (obstructive sleep apnea) Type 2 diabetes mellitus without complication, without long-term current use of insulin Surgical History Surgical History History of tonsillectomy Status post arthroscopy of left knee Status post carpal tunnel release Family History Family History Father , age 72 , first CAD age 52 Hypertension Family history of coronary artery disease Diabetes mellitus Mother No problems noted. Social History Social History Social History: Works for [employer] for the past 25 years Smoking status: Never smoker Second hand tobacco smoke exposure: No Alcohol intake: current Drinks per week: 1 Substance use: never Substance use type: does not use Living arrangements: alone Occupation/Education: occupation Gender identity (if verbalized by the patient): Male Sexual Orientation (if Verbalized by the Patient): Straight or Heterosexual Spiritual care concerns: No Meds Home Medications and Allergies Home Medications Medication Instructions Recorded Confirmed Type aspirin 81 mg tablet,delayed 81 mg PO DAILY 09/18/19 10/10/23 History release cholecalciferol (vitamin D3) 25 1,000 unit PO DAILY 09/18/19 10/10/23 History mcg (1,000 unit) capsule fluticasone propionate 50 2 spray intranasal DAILY PRN 09/18/19 10/10/23 History mcg/actuation nasal Allergy Symptoms spray,suspension omega-3 fatty acids 1,000 mg 1,000 mg PO DAILY 09/18/19 10/10/23 History capsule (Fish Oil Concentrate) diphenhydramine HCl 25 mg tablet 25 mg PO TID PRN Allergy Symptoms 04/05/20 10/10/23 History (Benadryl Allergy) diltiazem HCl 180 mg See Rx Instructions .Route 01/09/23 10/10/23 Rx capsule,extended release 24 hr .COMPLEX #180 caps nebivolol 10 mg tablet (Bystolic) See Rx Instructions .Route 01/09/23 10/10/23 Rx .COMPLEX #90 tabs metformin 500 mg tablet,extended 2,000 mg PO DAILY #360 tabs 01/26/23 10/10/23 Rx release 24 hr rosuvastatin 10 mg tablet See Rx Instructions .Route 02/26/23 10/10/23 Rx .COMPLEX #90 tabs glimepiride 2 mg tablet See Rx Instructions .Route 08/13/23 10/10/23 Rx .COMPLEX #90 tabs aliskiren 300 mg tablet (Tekturna) See Rx Instructions .Route .COMPLEX 09/25/23 10/10/23 History dulaglutide 3 mg/0.5 mL 3 mg subcut WEEKLY 09/25/23 10/10/23 History subcutaneous pen injector (Trulicity) fenofibrate nanocrystallized 145 145 mg PO QAM 09/25/23 10/10/23 History mg tablet (Tricor) ferrous sulfate 325 mg (65 mg 325 mg PO DAILY 09/25/23 10/10/23 History iron) tablet Allergies Allergy/AdvReac Type Severity Reaction Status Date / Time hydrochlorothiazide Allergy Severe Anaphylaxis Verified 10/10/23 11:17 losartan Allergy Severe Anaphylaxis Verified 10/10/23 11:17 amlodipine [From Lotrel] Allergy Headache Verified 10/10/23
[2023-10-10 11:19] VITALS: BP 149/86; PULSE 79; RESP 16; TEMP 36.2; O2SAT 99
[2023-10-10] MEDS: LACTATED RINGERS 1,000 ML 150 ML IV CONT (11:30)
--- NOTE | 2023-10-10 11:34 | WPDANESEPPF ---
Anes - Initial Pre Proc Eval Procedure: Operation Date: 10/10/23 12:30 Proposed Procedures p Colonoscopy - Andrew Grimm MD Date/Time: 10/10/23 11:34 Surgeon: Andrew Grimm MD Pre Op Diagnosis: hx colon polyps Patient Data Age: 58 Gender: M Height: 1.83 m Weight: 172.2 kg Last Vital Signs Temp 97.1 F L 10/10/23 11:19 Pulse 79 10/10/23 11:19 Resp 16 10/10/23 11:19 BP 149/86 H 10/10/23 11:19 Pulse Ox 99 10/10/23 11:19 O2 Del Method Room Air 10/10/23 11:19 Allergies Allergy/AdvReac Type Severity Reaction Status Date / Time hydrochlorothiazide Allergy Severe Anaphylaxis Verified 10/10/23 11:17 losartan Allergy Severe Anaphylaxis Verified 10/10/23 11:17 amlodipine [From Lotrel] Allergy Headache Verified 10/10/23 11:17 benazepril [From Lotrel] Allergy Headache Verified 10/10/23 11:17 Home Medications Medication Instructions Recorded Confirmed Type aspirin 81 mg tablet,delayed 81 mg PO DAILY 09/18/19 10/10/23 History release cholecalciferol (vitamin D3) 25 1,000 unit PO DAILY 09/18/19 10/10/23 History mcg (1,000 unit) capsule fluticasone propionate 50 2 spray intranasal DAILY PRN 09/18/19 10/10/23 History mcg/actuation nasal Allergy Symptoms spray,suspension omega-3 fatty acids 1,000 mg 1,000 mg PO DAILY 09/18/19 10/10/23 History capsule (Fish Oil Concentrate) diphenhydramine HCl 25 mg tablet 25 mg PO TID PRN Allergy Symptoms 04/05/20 10/10/23 History (Benadryl Allergy) diltiazem HCl 180 mg See Rx Instructions .Route 01/09/23 10/10/23 Rx capsule,extended release 24 hr .COMPLEX #180 caps nebivolol 10 mg tablet (Bystolic) See Rx Instructions .Route 01/09/23 10/10/23 Rx .COMPLEX #90 tabs metformin 500 mg tablet,extended 2,000 mg PO DAILY #360 tabs 01/26/23 10/10/23 Rx release 24 hr rosuvastatin 10 mg tablet See Rx Instructions .Route 02/26/23 10/10/23 Rx .COMPLEX #90 tabs glimepiride 2 mg tablet See Rx Instructions .Route 08/13/23 10/10/23 Rx .COMPLEX #90 tabs aliskiren 300 mg tablet (Tekturna) See Rx Instructions .Route .COMPLEX 09/25/23 10/10/23 History dulaglutide 3 mg/0.5 mL 3 mg subcut WEEKLY 09/25/23 10/10/23 History subcutaneous pen injector (Trulicity) fenofibrate nanocrystallized 145 145 mg PO QAM 09/25/23 10/10/23 History mg tablet (Tricor) ferrous sulfate 325 mg (65 mg 325 mg PO DAILY 09/25/23 10/10/23 History iron) tablet Patient hx anesthesia problems: none Family hx anesthesia problems: none Results Review: All pre-operative results and documents have been reviewed as part of the pre-operative evaluation. [facility] Past Medical History Medical History Carpal tunnel syndrome on both sides Diabetes mellitus type 2, uncontrolled Essential (primary) hypertension Fractured tibia Mixed hyperlipidemia Obesity CIARA (obstructive sleep apnea) Type 2 diabetes mellitus without complication, without long-term current use of insulin Surgical History Surgical History History of tonsillectomy Status post arthroscopy of left knee Status post carpal tunnel release Family History Family History Father , age 72 , first CAD age 52 Hypertension Family history of coronary artery disease Diabetes mellitus Mother No problems noted. Social History Social History Social History: Works for [employer] for the past 25 years Smoking status: Never smoker Second hand tobacco smoke exposure: No Alcohol intake: current Drinks per week: 1 Substance use: never Substance use type: does not use Living arrangements: alone Occupation/Education: occupation Gender identity (if verbalized by the patient): Male Sexual Orientation (if Verbalized by the [place]
[2023-10-10 11:35] LABS: Glucose Point of Care 127 mg/dl (65-105)
[2023-10-10 12:22] VITALS: BP 109/61; PULSE 68; RESP 25; O2SAT 96
[2023-10-10 12:32] VITALS: BP 115/66; PULSE 64; RESP 22; O2SAT 97
[2023-10-10 12:42] VITALS: BP 120/63; PULSE 66; RESP 20; O2SAT 97
== END 2023-10-10 12:56 | disposition home or self-care (01) ==
PROVIDERS: PCP Family Medicine; Visit Provider Internal Medicine Gastroenterology
PROC: 0DJD8ZZ Inspection of Lower Intestinal Tract, Via Natural or Artificial Opening Endoscopic (ICD-10-PCS; CPT 45378; principal; 2023-10-10 12:30)
DX: Z12.11 Encounter for screening for malignant neoplasm of colon (principal); D12.2 Benign neoplasm of ascending colon; K63.5 Polyp of colon; E11.9 Type 2 diabetes mellitus without complications; I10 Essential (primary) hypertension; E78.2 Mixed hyperlipidemia; G47.33 Obstructive sleep apnea (adult) (pediatric); E66.9 Obesity, unspecified; Z68.38 Body mass index [BMI] 38.0-38.9, adult; Z79.82 Long term (current) use of aspirin; Z79.84 Long term (current) use of oral hypoglycemic drugs; Z79.85 Long-term (current) use of injectable non-insulin antidiabetic drugs
CPT/HCPCS: 45385; 82948; 88305; J2704; J7120

== ENCOUNTER 2023-11-20 07:36 | Outpatient (CLI) | payer BC, SELFPAY ==
--- NOTE | 2023-11-20 08:58 | ECG_ITS ---
Measurements Intervals [place] Rate: 74 P: 41 ME: 190 QRS: 3 QRSD: 105 T: 30 QT: 421 QTc: 468 Interpretive Statements SINUS RHYTHM DELAYED PRECORDIAL R/S TRANSITION BASELINE ARTIFACT- I, II, III, AVR, AVL, AVF BORDERLINE ECG COMPARED TO ECG 04/05/2020 18:09:39 NO SIGNIFICANT CHANGES Electronically Signed On 11-20-2023 9:21:59 BOTTLING LINE ATTENDANT by Vincenzo Adams D.O.
[2023-11-20 09:34] LABS: Hematocrit 41.2 % (42.0-52.0); Hemoglobin 13.6 g/dL (14.0-18.0)
[2023-11-20 09:35] LABS: Anion Gap 11 mmol/L (8-16); Blood Urea Nitrogen 19 mg/dL (9-20); Calcium 8.9 mg/dL (8.4-10.2); Carbon Dioxide 24 mmol/L (22-30); Chloride 102 mmol/L (98-107); Estimated Glomerular Filt Rate > 60; Glucose 203 mg/dL (65-110); Potassium 4.4 mmol/L (3.4-5.0); Sodium 137 mmol/L (137-145)
== END 2023-11-20 07:37 | disposition home or self-care (01) ==
LOC: ANHSURGERY 07:38
PROVIDERS: Anesthesiology; PCP Family Medicine; Visit Provider Surgery
DX: Z01.818 Encounter for other preprocedural examination (principal); D64.9 Anemia, unspecified; E11.9 Type 2 diabetes mellitus without complications; D36.9 Benign neoplasm, unspecified site; R93.1 Abnormal findings on diagnostic imaging of heart and coronary circulation
CPT/HCPCS: 36415; 80048; 85014; 85018; 86850; 86900; 86901; 93005

== ENCOUNTER 2023-11-27 12:17 | Inpatient (IN) | payer BC, SELFPAY ==
[2023-11-20 08:11] VITALS: BP 178/85; PULSE 77; RESP 16; TEMP 36.7; O2SAT 98; BMI 38.8
--- NOTE | 2023-11-20 08:26 | PC.NURSE ---
Report to the Outpatient Waiting Room, entrance under the green pavilion located off [facility], at time __6:00AM on date ___11/27/23____. Planned Procedure Time: __7:30AM . Time changes happen often and if your time is changed the preop area will call you the afternoon before. - You and your visitor will be asked to self-screen and do not enter if you have any COVID symptoms. - A mask is optional within the hospital at this time. Patients may have clear liquids (water, carbonated beverages, clear teas, apple juice) until 3 hours prior to surgery with a maximum of 20 ounces. - No food from midnight until time of surgery BOWEL PREP PER DR FRITZ TAKE ANTIBIOTICS DAY BEFORE SURGERY PER DR FRITZ Take the following medications with a SIP of water the morning of surgery: __DILTIAZEM, NEBIVOLOL DO NOT STOP ANY OF YOUR OTHER PRESCRIPTION MEDICATIONS PRIOR TO SURGERY ?EXCEPT THE FOLLOWING Medications to discontinue per physician ____HOLD ALL VITAMINS/SUPPLEMENTS 3 DAYS PRE-OP PER ANESTHESIA Date to take last dose 11/23/23 Please no make-up, nail kazakh, hairspray, perfume, deodorant, or body powder the day of surgery. No jewelry (including any body piercings) or valuables the day of surgery, leave them at home. Please take a shower or bath the night before, or the morning of, surgery with an antibacterial soap. Wear comfortable, loose fitting clothing. - Jewelry must be removed prior to entering the operating room. Rings and piercings that are not removed may be cut off. - The hospital will not accept responsibility for valuables. - Please leave all valuables, including medications, at home the day of surgery. If you are going home after surgery, a licensed route delivery driver must drive you home. - NO public transportation without another adult if you receive anesthesia. - We recommend that an adult stay with you for 24 hours following discharge. - We also recommend that you do not drive, make important decision, drink alcoholic beverages, or take any drugs that were not prescribed by your health care provider for at least 24 hours after your discharge time. HIBICLENS SHOWER PER DR FRITZ Follow any additional instructions given to you from your surgeon. If you or anyone in your household have experienced Covid symptoms in the past week, please notify your surgeon or the nurse liaison at the phone number below for possible testing. Telephone instructions given to __PATIENT and asked if any additional questions and then verbalized understanding. Patient advised to call surgeon office or pre surgery nurse liaison [phone] if any additional questions.
[2023-11-27] VITALS (16 sets, daily range): BP systolic 110–162; BP diastolic 55–80; PULSE 74–94; RESP 12–24; TEMP 35.7–36.6; O2SAT 92–100
[2023-11-27] MEDS: ACETAMINOPHEN 500 MG TABLET 1000 MG PO ×4 (06:30→23:57)
[2023-11-27] MEDS: KETOROLAC 15 MG/ML VIAL (*BKC) IV PUSH (06:30)
[2023-11-27] MEDS: LACTATED RINGERS 1,000 ML 30 ML IV CONT (06:30)
--- NOTE | 2023-11-27 07:13 | WPDANESEPPF ---
Anes - Initial Pre Proc Eval Procedure: Operation Date: 11/27/23 07:30 Proposed Procedures p Laparoscopic Right Ethan-Colectomy, Davinci Assisted - Vinod Fung DO Date/Time: 11/27/23 07:13 Surgeon: Vinod Fung DO Pre Op Diagnosis: tubulovillous adenoma Patient Data Age: 58 Gender: M Height: 1.83 m Weight: 130 kg Last Vital Signs Temp 98.1 F 11/20/23 08:11 Pulse 77 11/20/23 08:11 Resp 16 11/20/23 08:11 BP 178/85 H 11/20/23 08:11 Pulse Ox 98 11/20/23 08:11 O2 Del Method Room Air 11/20/23 08:11 Allergies Allergy/AdvReac Type Severity Reaction Status Date / Time hydrochlorothiazide Allergy Severe Anaphylaxis Verified 11/20/23 08:00 losartan AdvReac Severe SEVERE Verified 11/20/23 08:00 HEADACHE amlodipine [From Lotrel] AdvReac Headache Verified 11/20/23 08:00 benazepril [From Lotrel] AdvReac Headache Verified 11/20/23 08:00 Home Medications Medication Instructions Recorded Confirmed Type aspirin 81 mg tablet,delayed 81 mg PO DAILY 09/18/19 11/20/23 History release cholecalciferol (vitamin D3) 25 1,000 unit PO DAILY 09/18/19 11/20/23 History mcg (1,000 unit) capsule fluticasone propionate 50 2 spray intranasal DAILY PRN 09/18/19 11/20/23 History mcg/actuation nasal Allergy Symptoms spray,suspension omega-3 fatty acids 1,000 mg 1,000 mg PO DAILY 09/18/19 11/20/23 History capsule (Fish Oil Concentrate) diphenhydramine HCl 25 mg tablet 25 mg PO TID PRN Allergy Symptoms 04/05/20 11/20/23 History (Benadryl Allergy) dulaglutide 3 mg/0.5 mL 3 mg subcut WEEKLY 09/25/23 11/20/23 History subcutaneous pen injector (Trulicity) fenofibrate nanocrystallized 145 145 mg PO QAM 09/25/23 11/20/23 History mg tablet (Tricor) ferrous sulfate 325 mg (65 mg 325 mg PO DAILY 09/25/23 11/20/23 History iron) tablet ciprofloxacin HCl 500 mg tablet 500 mg PO .COMPLEX #1 tablet 10/31/23 11/20/23 Rx (Cipro) metronidazole 500 mg tablet 500 mg PO .COMPLEX #3 tabs 10/31/23 11/20/23 Rx rosuvastatin 10 mg tablet See Rx Instructions .Route 11/02/23 11/20/23 Rx .COMPLEX #90 tabs aliskiren 300 mg tablet (Tekturna) 300 mg PO QAM 11/20/23 11/20/23 History diltiazem HCl 180 mg 360 mg PO QAM 11/20/23 11/20/23 History capsule,extended release 24 hr glimepiride 2 mg tablet 2 mg PO QAM 11/20/23 11/20/23 History metformin 500 mg tablet,extended 2,000 mg PO QACDINNER 11/20/23 11/20/23 History release 24 hr nebivolol 10 mg tablet (Bystolic) 10 mg PO QAM 11/20/23 11/20/23 History omeprazole 20 mg capsule,delayed 20 mg PO DAILY PRN Indigestion 11/20/23 11/20/23 History release Patient hx anesthesia problems: none Family hx anesthesia problems: none Results Review: All pre-operative results and documents have been reviewed as part of the pre-operative evaluation. [facility] Past Medical History Medical History Carpal tunnel syndrome on both sides Diabetes mellitus type 2, uncontrolled Essential (primary) hypertension Fractured tibia Mixed hyperlipidemia Obesity CIARA (obstructive sleep apnea) Type 2 diabetes mellitus without complication, without long-term current use of insulin Surgical History Surgical History History of tonsillectomy Status post arthroscopy of left knee Status post carpal tunnel release Family History Family History Father , age 72 , first CAD age 52 Hypertension Family history of coronary artery disease Diabetes mellitus Mother No problems noted. Social History Social History (Updated 10/31/23 @ 13:51 by Caitlin Vincent MA) Social History: Works for [employer] for the past 25 years Smoking status: Never smoker Second hand tobacco smoke exposure: No Alcohol intake: current Drinks per week: 1 Substance use: ne
--- NOTE | 2023-11-27 07:15 | WPDHPUPDATE1 ---
History and Physical Update Update Date/Time: 11/27/23 07:15 History and Physical has been reviewed, including an updated exam of the patient. There are NO changes in the patient's condition. Risks, benefits, and alternatives have been discussed and questions answered. Patient agrees to proceed with procedure.
[2023-11-27 07:18] LABS: Glucose Point of Care 190 mg/dl (65-105)
[2023-11-27] MEDS: ceFAZolin 3 GM/D5W 100 ML 100 ML IVPB (07:26)
[2023-11-27] MEDS: metroNIDAZOLE 500 MG/ISO 100ML 500 MG/100 ML BAG 100 MG IVPB (07:26)
[2023-11-27] MEDS: BUPIVACAINE/EPINEPHRINE 0.5% 30 ML VIAL INFILTRATE (07:59)
[2023-11-27] MEDS: INDOCYANINE GREEN 25 MG VIAL WITH DILUENT 3.75 MG IV PUSH (09:04)
--- NOTE | 2023-11-27 10:41 | W.PM.PROC2 ---
Procedure Note - Detailed Date of Procedure 11/27/23 Pre-op Diagnosis tubulovillous adenoma of ascending colon Post-op Diagnosis Same Procedure Performed Laparoscopic right hemicolectomy with ileocolic anastomosis, da Matilde assisted Surgeon Vinod Fung, DO Anesthesia General and Local (Exparel) Indications This is a 58-year-old man who presented with a large tubulovillous adenoma in the ascending colon. He has multiple colonoscopies over the past several years. A large polyp was removed in a piecemeal fashion 3 years ago and the area was tattooed. On follow-up colonoscopies there still appeared to be some flat appearing wide polyp within this same location.His most recent colonoscopy was on 10/10/2023 and the polyp was not able to be completely removed. Patient was then referred for surgical resection. Discussions were made with the patient about treatment options and decision was made to proceed with robotic assisted laparoscopic right hemicolectomy. Findings Robotic assisted laparoscopic right hemicolectomy was performed. The previous tattooed region was difficult to identify due to it being over 3 years prior. I performed a right hemicolectomy and opened the specimen on the table. The polyp was identified in the expected location within the ascending colon. Indocyanine green was used to assess adequate perfusion to the resection margins. I then performed a [id number] stapled isoperistaltic ileocolic anastomosis and closed the common enterotomy using 3 0 V lock running absorbable suture in 2 layers. No other significant abnormalities were identified. Description of Procedure Procedure as well as risks, benefits, and alternatives were discussed with the patient.? Written consent was obtained and placed in chart prior to procedure.? Patient was brought back to surgical suite.? He was placed supine on operating table.? Time-out was done to confirm patient and procedure.? He was then intubated by the anesthesia department.? His abdomen was prepped and draped in sterile fashion using chlorhexidine prep.? An 8 mm incision was made in the left upper quadrant and a 5 mm Optiview trocar was advanced through the abdominal layers under direct visualization.? Once inside the abdominal cavity, carbon dioxide insufflation was used to create a pneumoperitoneum.? Camera was inserted in the abdomen was inspected.? The patient was placed in 5 degree reverse Trendelenburg and 6? rotated left. An 8 mm incision was made in the suprapubic region in midline and an 8 mm trocar was inserted under direct visualization another 8 mm incision was made in the umbilical region just inferior into the left of the umbilicus and an 8 mm trocar was inserted under direct visualization.? A 12 mm incision was made in the left lateral abdomen and a 12 mm trocar was inserted under direct visualization.? An 8 mm incision was made in the left lower quadrant and an 8 mm assist port was placed under direct visualization.? The 5 mm port was then removed and exchanged for an 8 mm port.? The robotic arms were then brought up to the patient's bedside and secured to the ports.? The camera and instruments were then inserted.? I then moved over to the robotic console and took control of the camera and instruments.? Thorough inspection was made around the abdominal cavity.? The omentum was then reflected cephalad over the transverse colon.? The area near the ileocecal valve was grasped and retracted anterior and laterally to tent up the ileocolic pedicle.? Scissors with electrocautery were then used to perform the medial to lateral dissection.? I entered into the avascular plane just inferior to the ileocolic pedicle and carefully dissected cephalad to identify the duodenum.? Once the duodenum was identified and then continued sweeping the retroperitoneal structures posteriorly and then isolated the ileocolic pedicle.? A high ligation of the ileocolic vessels was then performed using the vessel sealer.? Addyo
[2023-11-27 10:51] LABS: Glucose Point of Care 321 mg/dl (65-105)
[2023-11-27] MEDS: ONDANSETRON INJ 4 MG/2 ML VIAL IV PUSH ×2 (11:23→12:38)
--- NOTE | 2023-11-27 12:25 | ADMGEN ---
This patient, Husam Clements, was admitted to [address] [facility] Surg Room 330-01. Patient/family oriented to hospital policies and general routines including ID bracelet, bed and alarms, visiting hours, pain management, procedures, bathroom and other care routines, personal items, smoking policy, room service/diet, and visiting hours. Information on how to activate the Rapid Response Team has been discussed. Patient/Family are encouraged to report perceived risks to care and to ask questions if they do not understand what they are told or what they should do.
[2023-11-27] MEDS: LACTATED RINGERS 1,000 ML 100 ML IV CONT (12:38)
[2023-11-27] MEDS: metFORMIN HCL XR 500 MG TAB.SR.24H 2000 MG PO (14:16)
[2023-11-27 16:16] LABS: Glucose Point of Care 306 mg/dl (65-105)
[2023-11-27 21:42] LABS: Glucose Point of Care 271 mg/dl (65-105)
[2023-11-27] MEDS: oxyCODONE HCL (*CRX) 2.5 MG TAB IR PO (23:57)
[2023-11-28 00:25] VITALS: BP 156/86; PULSE 91; RESP 20; TEMP 36.2; O2SAT 97
[2023-11-28] MEDS: LACTATED RINGERS 1,000 ML 100 ML IV CONT (01:00)
[2023-11-28 04:45] VITALS: BP 187/84; PULSE 89; RESP 18; TEMP 36.4; O2SAT 97
[2023-11-28] MEDS: ACETAMINOPHEN 500 MG TABLET 1000 MG PO ×2 (05:13→11:35)
[2023-11-28 06:40] LABS: Hemoglobin 13.4 g/dL (14.0-18.0); Mean Corpuscular HGB Conc 30.5 g/dl (32-36); Mean Corpuscular Hemoglobin 27.2 pg (26-34); Mean Corpuscular Volume 89.4 fl (80-100); Mean Platelet Volume 10.5 fl (7.4-10.4); Platelet Count Result 235 k/mm3 (150-375); Red Blood Count 4.92 M/mm3 (4.6-6.20); Red Cell Distribution Width 14.4 % (11.5-14.5); White Blood Count 13.4 K/mm3 (4.5-10.0)
[2023-11-28 07:41] LABS: Glucose Point of Care 239 mg/dl (65-105)
[2023-11-28 08:00] VITALS: BP 159/90; PULSE 88; RESP 16; O2SAT 97
[2023-11-28 08:24] LABS: Anion Gap 15 mmol/L (8-16); Blood Urea Nitrogen 13 mg/dL (9-20); Calcium 9.6 mg/dL (8.4-10.2); Carbon Dioxide 23 mmol/L (22-30); Chloride 96 mmol/L (98-107); Estimated CRCL calculation 108 ml/min; Estimated Glomerular Filt Rate > 60; Glucose 225 mg/dL (65-110); Potassium 4.4 mmol/L (3.4-5.0); Sodium 134 mmol/L (137-145)
[2023-11-28] MEDS: dilTIAZem HCL CD 180 MG CAP.24HR 360 MG PO (08:28)
[2023-11-28 08:29] VITALS: PULSE 88
[2023-11-28] MEDS: NEBIVOLOL HCL 5 MG TABLET 10 MG PO (08:29)
[2023-11-28] MEDS: GLIMEPIRIDE 2 MG TABLET PO (08:29)
[2023-11-28] MEDS: ASPIRIN 81 MG ENTERIC TABLET PO (08:29)
[2023-11-28] MEDS: ENOXAPARIN 40 MG/0.4 ML SYRINGE SUB-Q (08:34)
[2023-11-28 11:17] LABS: Glucose Point of Care 214 mg/dl (65-105)
[2023-11-28 12:00] VITALS: BP 147/81; PULSE 78; RESP 16; TEMP 36.5; O2SAT 98
--- NOTE | 2023-11-28 13:50 | WPDANESPN ---
Anes - Prog Note Post-Op Date/Time: 11/28/23 13:50 Cardiovascular status: normal Respiratory status: normal Airway patency: baseline Mental status: baseline Post-Op hydration status: normal Vital Signs: Last Vital Signs Temp 97.7 F 11/28/23 12:00 Pulse 78 11/28/23 12:00 Resp 16 11/28/23 12:00 BP 147/81 H 11/28/23 12:00 Pulse Ox 98 11/28/23 12:00 O2 Del Method Room Air 11/28/23 08:00 O2 Flow Rate 2 11/27/23 11:50 Pain Score (VAS): 0/10 I/O: Intake & Output 11/27/23 11/28/23 11/28/23 23:59 07:59 15:59 Intake Total 1740 750 484 Output Total 600 Balance 1140 750 484 Laboratory Tests 11/28/23 06:28 11/28/23 07:43 11/27/23 11/27/23 11/28/23 16:11 20:36 06:28 WBC 13.4 H RBC 4.92 Hgb 13.4 L Hct 44.0 MCV 89.4 MCH 27.2 MCHC 30.5 L RDW 14.4 Plt Count 235 MPV 10.5 H Sodium Potassium Chloride Carbon Dioxide Anion Gap BUN Creatinine Estim Creat Clear Calc Estimated GFR Glucose POC Capillary Glucose 306 H 271 H Calcium 11/28/23 11/28/23 11/28/23 07:36 07:43 11:12 WBC RBC Hgb Hct MCV MCH MCHC RDW Plt Count MPV Sodium 134 L Potassium 4.4 Chloride 96 L Carbon Dioxide 23 Anion Gap 15 BUN 13 D Creatinine 0.90 Estim Creat Clear Calc 108 Estimated GFR > 60 Glucose 225 H POC Capillary Glucose 239 H 214 H Calcium 9.6 Post-procedural complaints: none Patient Feedback: Patient satisfied with anesthetic care.
--- NOTE | 2023-11-28 15:23 | PM.DS ---
DS: Admitting Diagnosis Discharge Date 11/28/2023 Admitting Diagnosis Tubulovillous adenoma of ascending colon DS: Discharge Diagnosis Discharge Diagnosis (1) Tubulovillous adenoma: Code(s): D36.9 - Benign neoplasm, unspecified site Status: Acute (2) Type 2 diabetes mellitus without complication, without long-term current use of insulin: Code(s): E11.9 - Type 2 diabetes mellitus without complications Status: Chronic (3) CIARA (obstructive sleep apnea): Code(s): G47.33 - Obstructive sleep apnea (adult) (pediatric) Status: Acute DS: Summary Hospital Course Reason for hospitalization: Tubulovillous adenoma of ascending colon Hospital Course: This is a 58-year-old man who presented for robotic assisted laparoscopic right hemicolectomy on 11/27/2023. He had a prior history of low large polyps that were partially excised endoscopically. He continued to have evidence of a large tubulovillous adenoma in the ascending colon despite previous attempts at endoscopic snare polypectomy. Surgery was uncomplicated and he was admitted to the surgical floor postoperatively. He was started on clear liquid diet and pain was controlled with oral and IV pain medications as needed. His activity was slowly advanced as tolerated. On postop day 1 he was tolerating clear liquids without any nausea or vomiting. He was advanced to a full liquid diet and then to a soft regular diet. He was tolerating the diet and during the daytime on postop day 1 began passing flatus. He was ambulating in the halls with minimal difficulty. His pain was controlled and he was hemodynamically stable. He was discharged on 11/28/2023. Pathology confirmed evidence of tubulovillous adenoma in the ascending colon and no signs of carcinoma. Status at Discharge Functional status at discharge: independent ambulation Overall status at discharge: patient is progressing back to baseline Time Spent with Patient Time attestation: Total time spent providing and/or coordinating discharge services: Time spent: Less than 30 minutes Exam Const: General: no acute distress and alert Orientation/consciousness: patient oriented x3 GI: Inspection: non-distended and incision (Intact with glue) GI Palp: Yes Soft to palpation and Yes Tenderness to palpation present (GI) (Incisional) Auscultation: normal bowel sounds DS: Data Data Completed and Pending Completed studies during hospitalization: Pending at discharge 11/27/23 09:41 Surgical [PTH] Routine Labs on day of discharge: Labs from last 24 hours 11/28/23 11/28/23 11/28/23 11:12 07:43 07:36 WBC RBC Hgb Hct MCV MCH MCHC RDW Plt Count MPV Sodium 134 L Potassium 4.4 Chloride 96 L Carbon Dioxide 23 Anion Gap 15 BUN 13 D Creatinine 0.90 Estim Creat Clear Calc 108 Estimated GFR > 60 Glucose 225 H POC Capillary Glucose 214 H 239 H Calcium 9.6 11/28/23 11/27/23 11/27/23 06:28 20:36 16:11 WBC 13.4 H RBC 4.92 Hgb 13.4 L Hct 44.0 MCV 89.4 MCH 27.2 MCHC 30.5 L RDW 14.4 Plt Count 235 MPV 10.5 H Sodium Potassium Chloride Carbon Dioxide Anion Gap BUN Creatinine Estim Creat Clear Calc Estimated GFR Glucose POC Capillary Glucose 271 H 306 H Calcium Discharge Plan Discharge Attending physician on discharge: Vinod Fung Consulting providers: Sharad De Santiago; Yaron Saleh Discharging Clinician: Vinod Fung Patient Disposition: Home, Self-Care Activity: other - see discharge instructions Diet: low fiber Discharge Instructions: Postop Instructions No lifting >10 lbs. OK to shower May drive in 5 days Continue soft diet for 1 week, then may continue to regular diet. Call office for increasing pain, nausea, vomiting, or other problems. Patient Instructions: Antibiotic Form Stand Alone Fo
[2023-11-28 15:43] VITALS: BP 149/80; PULSE 71; RESP 16; O2SAT 91
== END 2023-11-28 16:15 | disposition home or self-care (01) | DRG 331 ==
LOC: ANH3MEDSUR 12:21
PROVIDERS: Admitting Provider Surgery; PCP Family Medicine; Visit Provider Surgery
PROC: 0DTF4ZZ Resection of Right Large Intestine, Percutaneous Endoscopic Approach (ICD-10-PCS; principal; 2023-11-27 07:30)
DX: E11.9 Type 2 diabetes mellitus without complications; E78.2 Mixed hyperlipidemia; E66.9 Obesity, unspecified; D12.2 Benign neoplasm of ascending colon; G47.33 Obstructive sleep apnea (adult) (pediatric); I10 Essential (primary) hypertension; Z68.37 Body mass index [BMI] 37.0-37.9, adult; Z79.84 Long term (current) use of oral hypoglycemic drugs; Z79.85 Long-term (current) use of injectable non-insulin antidiabetic drugs; Z79.82 Long term (current) use of aspirin
CPT/HCPCS: 36415; 80048; 82948; 85027; 88309; A9270; J0690; J1100; J1170; J1596; J1650; J1836; J1885; J2405; J2704; J2710; J3010; J7030; J7120

== ENCOUNTER 2024-02-23 02:28 | Emergency (ER) | payer BC, SELFPAY ==
[2024-02-23 02:58] VITALS: BP 168/86; PULSE 76; RESP 16; TEMP 36.6; O2SAT 98
--- NOTE | 2024-02-23 03:02 | ED.GENADULT ---
HPI - General Adult General Chief complaint: Allergic Reaction Stated complaint: allergic reaction, swelling to foreskin, throat Time Seen by Provider: 02/23/24 02:36 History of Present Illness HPI narrative: This is a 59-year-old male presenting with possible allergic reaction. Patient started feel a globus sensation in his throat, itching over his abdomen and swelling to his foreskin. patient is able to tolerate his own secretions, no slurring of his speech muffling of his voice. No wheezing nausea vomiting or diarrhea. Patient's foreskin is swollen but he has been able to urinate without difficulty and has no penile pain. No known allergen exposures Related Data Home Medications Medication Instructions Recorded Confirmed aspirin 81 mg tablet,delayed 81 mg PO DAILY 09/18/19 01/14/24 release cholecalciferol (vitamin D3) 25 1,000 unit PO DAILY 09/18/19 01/14/24 mcg (1,000 unit) capsule fluticasone propionate 50 2 spray intranasal DAILY PRN 09/18/19 01/14/24 mcg/actuation nasal Allergy Symptoms spray,suspension omega-3 fatty acids 1,000 mg 1,000 mg PO DAILY 09/18/19 01/14/24 capsule (Fish Oil Concentrate) diphenhydramine HCl 25 mg tablet 25 mg PO TID PRN Allergy Symptoms 04/05/20 01/14/24 (Benadryl Allergy) fenofibrate nanocrystallized 145 145 mg PO QAM 09/25/23 01/14/24 mg tablet (Tricor) ferrous sulfate 325 mg (65 mg 325 mg PO DAILY 09/25/23 01/14/24 iron) tablet aliskiren 300 mg tablet (Tekturna) 300 mg PO QAM 11/20/23 01/14/24 diltiazem HCl 180 mg 360 mg PO QAM 11/20/23 01/14/24 capsule,extended release 24 hr glimepiride 2 mg tablet 2 mg PO QAM 11/20/23 01/14/24 metformin 500 mg tablet,extended 2,000 mg PO QACDINNER 11/20/23 01/14/24 release 24 hr nebivolol 10 mg tablet (Bystolic) 10 mg PO QAM 11/20/23 01/14/24 omeprazole 20 mg capsule,delayed 20 mg PO DAILY PRN Indigestion 11/20/23 01/14/24 release Allergies Allergy/AdvReac Type Severity Reaction Status Date / Time hydrochlorothiazide Allergy Severe Anaphylaxis Verified 02/23/24 03:02 losartan AdvReac Severe SEVERE Verified 02/23/24 03:02 HEADACHE amlodipine [From Lotrel] AdvReac Headache Verified 02/23/24 03:02 benazepril [From Lotrel] AdvReac Headache Verified 02/23/24 03:02 PMFSH Past Medical History Medical History Carpal tunnel syndrome on both sides Diabetes mellitus type 2, uncontrolled Essential (primary) hypertension Fractured tibia Mixed hyperlipidemia Obesity CIARA (obstructive sleep apnea) Type 2 diabetes mellitus without complication, without long-term current use of insulin Surgical History Surgical History History of hemicolectomy Laparoscopic right hemicolectomy with ileocolic anastomosis, da Matilde assisted 12/13/23 [facility] History of tonsillectomy Status post arthroscopy of left knee Status post carpal tunnel release Family History Family History Father , age 72 , first CAD age 52 Hypertension Family history of coronary artery disease Diabetes mellitus Mother No problems noted. Social History Social History Social History: Works for [employer] for the past 25 years Smoking status: Never smoker Second hand tobacco smoke exposure: No Alcohol intake: current Drinks per week: 1 Substance use: never Substance use type: does not use Do You Feel Safe in your Home?: Yes Lack of Transportation: No Lack of Food: Never True Current Housing: I Have Housing Concerned About Future Housing: No Difficulty Paying Gas/Electric Bills: No Difficulty Paying for Meds: No Currently Unemployed: No Education: Bachelor's Degree Difficulty w/ Childcare or Family Care: No Living arrangements: alone Occupation/Education: retired Gender i
[2024-02-23] MEDS: dexAMETHasone SOD PHOS INJ 10 MG/ML 1 ML VIAL IV PUSH (03:18)
[2024-02-23] MEDS: FAMOTIDINE 20 MG/2 ML VIAL 40 MG IV PUSH (03:19)
[2024-02-23] MEDS: diphenhydrAMINE HCl INJ 50 MG/ML VIAL IV PUSH (03:19)
[2024-02-23 04:41] VITALS: BP 165/85; PULSE 75; RESP 18; O2SAT 99
== END 2024-02-23 04:47 | disposition home or self-care (01) ==
PROVIDERS: Emergency Provider Emergency Medicine; PCP Family Medicine
DX: T78.40XA Allergy, unspecified, initial encounter (principal); N47.1 Phimosis; I10 Essential (primary) hypertension; E11.9 Type 2 diabetes mellitus without complications; E78.2 Mixed hyperlipidemia; E66.9 Obesity, unspecified; Z68.37 Body mass index [BMI] 37.0-37.9, adult; G47.33 Obstructive sleep apnea (adult) (pediatric); Z79.84 Long term (current) use of oral hypoglycemic drugs; Z79.82 Long term (current) use of aspirin; Z90.49 Acquired absence of other specified parts of digestive tract; X58.XXXA Exposure to other specified factors, initial encounter
CPT/HCPCS: 96374; 96375; 99284; J1100; J1200

== ENCOUNTER 2024-02-25 23:38 | Emergency (ER) | payer BC, SELFPAY ==
--- NOTE | ~2024-02-25 | XR_ITS ---
EXAMINATION: XR chest 2V Exam Date/Time: 02/25/2024 23:40 CDT HISTORY: chest tightness, SOB Comparison: 05/03/2021. RESULT: Lines, tubes, and devices: None. Lungs and pleura: Clear. Cardiomediastinal silhouette: Stable. Other: No acute osseous or upper abdominal finding. IMPRESSION: No acute cardiopulmonary process. Reviewed, dictated and finalized at location K.
--- NOTE | 2024-02-25 23:39 | ECG_ITS ---
SEE SCANNED COPY FOR CONFIRMED REPORT. MTDD
[2024-02-25 23:41] VITALS: BP 165/71; PULSE 74; RESP 18; TEMP 36.4; O2SAT 99
[2024-02-26] VITALS (13 sets, daily range): BP systolic 152–192; BP diastolic 74–93; PULSE 68–75; RESP 17–32; O2SAT 95–99
--- NOTE | 2024-02-26 00:47 | PC.NURSE ---
Pt states he feels almost back to normal.
[2024-02-26 01:17] LABS: Basophils Absolute Auto 0.1 K/mm3 (0.0-0.1); Basophils Percent Auto 0.7 % (0.2-1.2); Eosinophils Absolute Auto 0.2 K/mm3 (0-0.3); Eosinophils Percent Auto 1.6 % (0-4.4); Hematocrit 35.4 % (42.0-52.0); Immature Granulocyte Absolute 0.14 K/mm3 (0.00-0.031); Immature Granulocyte Percent A 1.4 % (0-0.5); Lymphocytes Absolute Auto 3.39 K/mm3 (0.9-3.2); Lymphocytes Percent Auto 33.6 % (18.3-44.2); Mean Corpuscular HGB Conc 33.9 g/dl (32-36); Mean Corpuscular Hemoglobin 28.2 pg (26-34); Mean Corpuscular Volume 83.1 fl (80-100); Mean Platelet Volume 10.8 fl (7.4-10.4); Monocytes Absolute Auto 0.8 K/mm3 (0.1-0.6); Monocytes Percent Auto 7.7 % (2.6-8.5); Neutrophils Absolute Auto 5.5 K/mm3 (1.3-6.7); Platelet Count Result 217 k/mm3 (150-375); Red Blood Count 4.26 M/mm3 (4.6-6.20); Red Cell Distribution Width 13.6 % (11.5-14.5); White Blood Count 10.1 K/mm3 (4.5-10.0)
[2024-02-26 01:25] LABS: Partial Thromboplastin Time 25.3 Seconds (22.3-36.8); Prothrombin Time 13.5 Seconds (11.1-14.7)
[2024-02-26 01:29] LABS: Alanine Aminotransferase 37 U/L (6-50); Albumin Level 4.4 g/dL (3.5-5.1); Alkaline Phosphatase 143 U/L (38-126); Anion Gap 9 mmol/L (4-12); Aspartate Amino Transferase 43 U/L (17-59); Bilirubin,Total 0.5 mg/dL (0.2-1.3); Blood Urea Nitrogen 22 mg/dL (9-20); Calcium 9.6 mg/dL (8.4-10.2); Carbon Dioxide 25 mmol/L (22-30); Chloride 102 mmol/L (98-107); Estimated CRCL calculation 107 ml/min; Estimated Glomerular Filt Rate > 60; Glucose 272 mg/dL (65-110); Lipase 115 U/L (23-300); Sodium 136 mmol/L (137-145)
[2024-02-26 01:41] LABS: Troponin I < 0.012 ng/mL (0.000-0.034)
--- NOTE | 2024-02-26 02:36 | ED.GENADULT ---
HPI - General Adult General Chief complaint: Chest Pain Stated complaint: chest tightness Time Seen by Provider: 02/26/24 00:47 History of Present Illness HPI narrative: This is a 59-year-old male presenting for chest tightness. Patient was sleeping and woke from sleep with chest tightness, feeling that he could not breathe and severe anxiety. He took off his CPAP which he wears for obstructive sleep apnea and sat up and his symptoms quickly resolved. He then came to the hospital for emergency department because he is very concerned that he may be having a heart attack. At this time the patient is asymptomatic and resting comfortably. Related Data Home Medications Medication Instructions Recorded Confirmed aspirin 81 mg tablet,delayed 81 mg PO DAILY 09/18/19 01/14/24 release cholecalciferol (vitamin D3) 25 1,000 unit PO DAILY 09/18/19 01/14/24 mcg (1,000 unit) capsule fluticasone propionate 50 2 spray intranasal DAILY PRN 09/18/19 01/14/24 mcg/actuation nasal Allergy Symptoms spray,suspension omega-3 fatty acids 1,000 mg 1,000 mg PO DAILY 09/18/19 01/14/24 capsule (Fish Oil Concentrate) diphenhydramine HCl 25 mg tablet 25 mg PO TID PRN Allergy Symptoms 04/05/20 01/14/24 (Benadryl Allergy) fenofibrate nanocrystallized 145 145 mg PO QAM 09/25/23 01/14/24 mg tablet (Tricor) ferrous sulfate 325 mg (65 mg 325 mg PO DAILY 09/25/23 01/14/24 iron) tablet aliskiren 300 mg tablet (Tekturna) 300 mg PO QAM 11/20/23 01/14/24 diltiazem HCl 180 mg 360 mg PO QAM 11/20/23 01/14/24 capsule,extended release 24 hr glimepiride 2 mg tablet 2 mg PO QAM 11/20/23 01/14/24 metformin 500 mg tablet,extended 2,000 mg PO QACDINNER 11/20/23 01/14/24 release 24 hr nebivolol 10 mg tablet (Bystolic) 10 mg PO QAM 11/20/23 01/14/24 omeprazole 20 mg capsule,delayed 20 mg PO DAILY PRN Indigestion 11/20/23 01/14/24 release Allergies Allergy/AdvReac Type Severity Reaction Status Date / Time hydrochlorothiazide Allergy Severe Anaphylaxis Verified 02/23/24 03:02 losartan AdvReac Severe SEVERE Verified 02/23/24 03:02 HEADACHE amlodipine [From Lotrel] AdvReac Headache Verified 02/23/24 03:02 benazepril [From Lotrel] AdvReac Headache Verified 02/23/24 03:02 [facility] Past Medical History Medical History Carpal tunnel syndrome on both sides Diabetes mellitus type 2, uncontrolled Essential (primary) hypertension Fractured tibia Mixed hyperlipidemia Obesity CIARA (obstructive sleep apnea) Type 2 diabetes mellitus without complication, without long-term current use of insulin Surgical History Surgical History History of hemicolectomy Laparoscopic right hemicolectomy with ileocolic anastomosis, da Matilde assisted 12/13/23 [facility] History of tonsillectomy Status post arthroscopy of left knee Status post carpal tunnel release Family History Family History Father , age 72 , first CAD age 52 Hypertension Family history of coronary artery disease Diabetes mellitus Mother No problems noted. Social History Social History Social History: Works for [employer] for the past 25 years Smoking status: Never smoker Second hand tobacco smoke exposure: No Alcohol intake: current Drinks per week: 1 Substance use: never Substance use type: does not use Do You Feel Safe in your Home?: Yes Lack of Transportation: No Lack of Food: Never True Current Housing: I Have Housing Concerned About Future Housing: No Difficulty Paying Gas/Electric Bills: No Difficulty Paying for Meds: No Currently Unemployed: No Education: Bachelor's Degree Difficulty w/ Childcare or Family Care: No Living arrangements: alone Occupation/Education: retired Gender identity (if verbalized b
[2024-02-26 03:19] LABS: Troponin I < 0.012 ng/mL (0.000-0.034)
== END 2024-02-26 04:40 | disposition home or self-care (01) ==
PROVIDERS: Emergency Provider Emergency Medicine; PCP Family Medicine
DX: R07.89 Other chest pain (principal); I10 Essential (primary) hypertension; E11.9 Type 2 diabetes mellitus without complications; E78.2 Mixed hyperlipidemia; E66.9 Obesity, unspecified; Z68.38 Body mass index [BMI] 38.0-38.9, adult; G47.33 Obstructive sleep apnea (adult) (pediatric); Z79.82 Long term (current) use of aspirin; Z79.84 Long term (current) use of oral hypoglycemic drugs; Z90.49 Acquired absence of other specified parts of digestive tract
CPT/HCPCS: 36415; 71046; 80053; 83690; 84484; 85025; 85610; 85730; 93005; 99284

== ENCOUNTER 2024-07-02 14:29 | Outpatient (CLI) | payer BC, SELFPAY ==
--- NOTE | ~2024-07-02 | CT_ITS ---
EXAMINATION: CT abdomen pelvis wo con DATE: 07/02/2024 14:48 INDICATION: Unspecified abdominal pain. TECHNIQUE: Computed tomography (CT) of the abdomen and pelvis was performed without intravenous contr ast. Automated exposure control and iterative reconstruction technique were employed. The dose-length product was 1322.31 mGy-cm. COMPARISON: None. FINDINGS: The visualized portions of the lung bases demonstrate mild atelectasis. No pleural effusion . The heart size is normal. There are coronary artery calcifications. No pericardial effusion. There is diffuse hepatic steatosis. The gallbladder, spleen, pancreas, adrenal glands, and kidneys are norm al. There is no urolithiasis. There is a left inguinal hernia containing fat. There are changes of ri ght hemicolectomy. There are no dilated loops of bowel. Aortic atherosclerosis is noted. There are no pathologically enlarged lymph nodes. There is no free intraperitoneal fluid. There are bridging endp late osteophytes at multiple levels in the spine, consistent with diffuse idiopathic skeletal hyperos tosis (DISH). There is a chronic left L5 pars defect. There is mild lumbar spondylosis. IMPRESSION: 1. Left inguinal hernia containing fat. 2. Diffuse hepatic steatosis. Reviewed, dictated and finalized at location A.
== END 2024-07-02 14:30 | disposition home or self-care (01) ==
LOC: ANHIMG 14:31
PROVIDERS: PCP Family Medicine; Visit Provider Physician Assistant
DX: K40.90 Unilateral inguinal hernia, without obstruction or gangrene, not specified as recurrent (principal); K76.0 Fatty (change of) liver, not elsewhere classified
CPT/HCPCS: 74176